=== PATIENT | female | born 1960 | race Caucasian/White ===

== ENCOUNTER → 2016-08-17 | Outpatient (CLI) | payer OTHER ==
[~2016-08-17] VITALS: Ht 162.6 cm; Wt 62.1 kg
[~2016-08-17] MED LIST: AMITRIPTYLINE H25 M2 PO; AMRIX15 MG PO; AMRIX30 MG PO; AZMACORT20 G1 IH; BACLOFEN 10MG T10 MG PO; CYMBALTA30 MG PO; DIAZEPAM 5 MG5 M1 OR; FLECTOR PATCH1 EA TP; FLEXERIL PO; FOLIC ACID1 MG PO; HYDROCHLOROTHIA25 M2 PO; HYDROCODON-ACE1 EAC5 PO; HYDROXYCHLOROQ200 M1 PO; IMITREX; IMITREX 50 MG PO; IMITREX 50 MG T50 M1 PO; IMITREX PO; LEVOTHROID137 MCG PO; LEVOTHROID150 MC1 PO; LEVOTHYROXIN0.137 M1 PO; LEVOXYL175 MCG PO; LIPITOR10 MG PO; LISINOPRIL20 MG PO; LYRICA 50 MG50 MG PO; LYRICA 75 MG CA75 MG PO; MEDROLDOSEPACK PO; METHOTREXATE 22.5 MG PO; METHYLIN5 M1 PO; METHYLIN5 MG PO; MOBIC15 MG PO; MS CONTIN15 MG PO; NABUMETONE 500500 M1 PO; NORCO 10-325 T1 EACH PO; OXYCONTIN CR 1010 M1 PO; OXYCONTIN10 M1 PO; OXYCONTIN15 MG PO; PAXIL40 MG PO; PERCOCET 7.5-31 EAC1 PO; PERCOCET 7.5-31 EACH PO; POTASSIUM20 PO; PREDNISONE 10 M10 MG PO; PREDNISONE 5 MG5 M1 PO; PROAIR HFA8.5 GM IH; PROTONIX 20 MG20 M1 PO; PROTONIX PO; PROTONIX40 M2; RELAFEN500 MG PO; RELPAX40 MG PO; REQUIP0.5 MG PO; TIZANIDINE HCL 22 M1 PO; TOPAMAX50 MG PO; VALIUM5 MG PO; ZYRTEC 10 MG TA10 MG PO; ZYRTEC-D TABLE1 EAC1 PO
--- NOTE | ~2016-08-17 | HPC ---
[facility] [address] [place] [address] PAIN MANAGEMENT CONSULTATION Name: AAKASHGISELLA Beto Room #: REG BETH Watts#: [id number] Admission: 08/17/16 Attend Phys: Adan Youngblood DO Discharge: Date of : 62 Report #: [id number] THIS REPORT FOR: //name// CC: DEDE Youngblood SUBJECTIVE: The patient is a 56-year-old female typically treated for lumbar radiculopathy status post decompressive laminectomy, restless legs syndrome, and myofascial pain, requiring complex medication management. Last seen in the pain clinic on 05/24/2016. Continued on MS Contin 15 mg q.8 hours, Percocet 7.5/325 up to 4 a day, and baclofen 10 mg up to 5 a day, 1 in the morning, 1 at noon, 1 at dinner and 2 at bedtime. Last urine drug screen 04/27/2016, was positive for prescribed medications. (In January, she had a single urine positive for THC. The patient related this to using "essential oils"). Nonetheless, she is THC free and has continued to be. She returns to pain clinic today. She is complaining of some ongoing blepharospasm and photophobia. She notes she did use Botox injections in the past for blepharospasm, but cost was prohibitive, and she discontinued. Overall, notes pain is 3.5 on a 0-10 visual analog scale, primarily neck, shoulders and low back. Pain is exacerbated with activity, turning her head in stress. Medications along with heat and ice seem to help. We reviewed the fact that opiate medications are being used to provide analgesia adequate to support activities of daily living, not attempting to achieve a specific pain score on the 0-10 Visual Analog Scale. The current opiate medications are providing sufficient analgesia to allow the patient to participate in activities of daily living. The patient is not exhibiting any aberrant behavior suggestive of drug diversion. The patient is not having any adverse reactions to medications. The patient is not suffering from daytime somnolence or mental acuity changes. The patient is managing opiate-induced constipation with appropriate fize-vdn-splawby agents and dietary considerations. The patient was counseled on concern for caution with operating a motor vehicle while using opiate medications. A physical exam was performed and the patient's functional status was evaluated. All patients with back pain were advised against the bed rest greater than 4 days and were advised to return to normal activities. Pain score assessment was noted and the treatment plan was reviewed with the patient. All current medications, both prescribed and OTC were reviewed and reconciled on the electronic medical record. Tobacco screening was accomplished and smoking cessation was advised when indicated. BMI was noted and diet/exercise modification was recommended for all patients following outside normal parameters. I reviewed with the patient today their responsibilities to safeguard prescription medications, reviewed their responsibility to utilize medications [address] [address] PAIN MANAGEMENT CONSULTATION Name: GISELLA FINN Room #: REG BETH Watts#: [id number] Admission: 08/17/16 Attend Phys: Adan Youngblood DO Discharge: Date of : 62 Report #: [id number] only as prescribed by the physician. They are to seek and receive pain medications only from 1 physician group ([facility]). They are to use 1 pharmacy and keep the clinic informed if they change pharmacies. Their responsibilities include making followup visits in a timely fashion and to avoid abrupt discontinuation of medication usage. Their responsibilities further include bringing their medications (bottles from the pharmacy with residual pills) to the visit for possible confirmation of pill counts and the patient understands it is their responsibility to submit to random drug screens to ensure both that the medications prescribed are present, and that no other controlled substances are present. All prescriptions provided today were generated electronically. PHYSICAL EXAMINATION: VITAL SIGNS: A 56-year-old female, BMI is 23.5 kilograms per meter squared. Vital signs stable as noted on the EMR. HEENT: She does have blepharospasm and some photophobia. NECK: Cervical range of motion is limited. Diffuse tenderness in the upper back. No discrete trigger points are noted. NEUROLOGIC: Gait is tandem. IMPRESSION: Lumbar radiculopathy status post decompressive laminectomy, myofascial pain, restless legs syndrome, and chronic headaches, requiring complex medication management. RECOMMENDATIONS: Renew current medication unchanged, MS Contin 15 mg q.8 hours, Percocet 7.5/325 up to 4 a day. I have taken the liberty of writing for 3 months of current medication. Follow up at that time, earlier if needed. By: [id number] Adan Youngblood DO /nt
[2016-08-17 10:41] VITALS: BP 131/73
== END ==
LOC: PAIN 07:13
DX: M54.16 Radiculopathy, lumbar region (principal); M79.1 Myalgia; G25.81 Restless legs syndrome; R51 Headache; M96.1 Postlaminectomy syndrome, not elsewhere classified; Z87.891 Personal history of nicotine dependence

== ENCOUNTER → 2016-11-22 | Outpatient (CLI) | payer OTHER ==
[~2016-11-22] VITALS: Ht 162.6 cm; Wt 62.7 kg
[~2016-11-22] MED LIST changes: +MELATONIN1 MG PO
--- NOTE | ~2016-11-22 | HPC ---
[facility] [place] [address] [place] [address] PAIN MANAGEMENT CONSULTATION Name: GISELLA FINN Room #: REG BETH Abrams.#: [id number] Admission: 11/22/16 Attend Phys: Adan Youngblood DO Discharge: Date of : 62 Report #: [id number] THIS REPORT FOR: //name// CC: DEDE Youngblood DATE OF SERVICE: 11/22/2016 The patient is a very pleasant 56-year-old female well known to pain clinic, typically treated for chronic headaches, lumbar radiculopathy status post decompressive laminectomy, restless legs syndrome requiring complex medication management. Last urine drug screen 04/27/2016 was positive for prescribed medications. Returns to pain clinic today. She has ongoing headaches, which remain problematic. She has a little photophobia. She notes pain is in the neck, shoulders today, rates it a 4 on VAS and exacerbated with turning her to stress. She notes current medications provide sufficient analgesia to participate in activities of daily living. PHYSICAL EXAMINATION: Shows a 56-year-old female. BMI is 23.7 kilograms per meter squared. Vital signs are generally stable as noted in the EMR. Does not use tobacco products. Cervical range of motion is modestly limited. Tenderness is noted in the splenius capitis, trapezius. No discrete trigger points noted. Again, some chronic headaches. She states that she literally has 3 or 4 headache-free days a month. This has been going on for years. She has failed multiple classes of agents for migraines, she has been on Inderal in the past and has lost efficacy. She has tried Imitrex with nominal efficacy and has been on Topamax in the past, all agents have not afforded good control of her chronic daily migraine headaches. I think she would be an excellent candidate for Botox injections and we talked about this today. We reviewed the fact that opiate medications are being used to provide analgesia adequate to support activities of daily living, not attempting to achieve a specific pain score on the 0-10 Visual Analog Scale. The current opiate medications are providing sufficient analgesia to allow the patient to participate in activities of daily living. The patient is not exhibiting any aberrant behavior suggestive of drug diversion. The patient is not having any adverse reactions to medications. The patient is not suffering from daytime somnolence or mental acuity changes. The patient is managing opiate-induced constipation with appropriate lzzo-hfp-miugfjm agents and dietary considerations. The patient was counseled on concern for caution with operating a motor vehicle while using opiate medications. A physical exam was performed and the patient's functional status was evaluated. All patients with back pain were advised against the bed rest greater than [address] [address] PAIN MANAGEMENT CONSULTATION Name: GISELLA FINN Room #: REG BETH Watts#: [id number] Admission: 11/22/16 Attend Phys: Adan Youngblood DO Discharge: Date of : 62 Report #: [id number] days and were advised to return to normal activities. Pain score assessment was noted and the treatment plan was reviewed with the patient. All current medications, both prescribed and OTC were reviewed and reconciled on the electronic medical record. Tobacco screening was accomplished and smoking cessation was advised when indicated. BMI was noted and diet/exercise modification was recommended for all patients following outside normal parameters. I reviewed with the patient today their responsibilities to safeguard prescription medications, reviewed their responsibility to utilize medications only as prescribed by the physician. They are to seek and receive pain medications only from 1 physician group ( [facility]). They are to use 1 pharmacy and keep the clinic informed if they change pharmacies. Their responsibilities include making followup visits in a timely fashion and to avoid abrupt discontinuation of medication usage. Their responsibilities further include bringing their medications (bottles from the pharmacy with residual pills) to the visit for possible confirmation of pill counts and the patient understands it is their responsibility to submit to random drug screens to ensure both that the medications prescribed are present, and that no other controlled substances are present. All prescriptions provided today were generated electronically. ASSESSMENT: Chronic headaches, chronic pain syndrome, lumbar radiculopathy status post decompressive laminectomy and restless legs syndrome and the patient is stable on baseline medications. RECOMMENDATION: Continue MS Contin 15 mg q. 8 hours, baclofen 10 mg q. 8 hours for spasm, Percocet 7.5/325 one tablet 2-3 times a day, limit #75 tablets for 30 days. I have taken the liberty writing for 3 months of current medication. Follow up at that time, we will reach out to the patient about Botox injections in the near future. By: [id number] Adan Youngblood DO /nt
[2016-11-22 11:15] VITALS: BP 130/90
== END | disposition home or self-care (01) ==
LOC: PAIN 07:29
DX: M54.16 Radiculopathy, lumbar region (principal); Z98.890 Other specified postprocedural states; Z79.899 Other long term (current) drug therapy; G89.4 Chronic pain syndrome; G25.81 Restless legs syndrome; Z87.891 Personal history of nicotine dependence

== ENCOUNTER → 2017-02-21 | Outpatient (CLI) | payer OTHER ==
[~2017-02-21] VITALS: Ht 162.6 cm; Wt 63.1 kg
--- NOTE | ~2017-02-21 | HPC ---
[facility] [place] [address] PAIN MANAGEMENT CONSULTATION Name: GISELLA FINN Room #: REG BETH Watts#: [id number] Admission: 02/21/17 Attend Phys: Adan Youngblood DO Discharge: Date of : 62 Report #: [id number] THIS REPORT FOR: //name// CC: DEDE Youngblood The patient is a 56-year-old female, was typically treated for lumbar radiculopathy, status post cervical decompressive laminectomy, chronic headaches, restless leg syndrome, requiring high risk complex medication management. Last seen in the pain clinic 11/22/2016, continued on MS Contin 15 mg q.8 hours, Percocet 7.5/325 one tablet 2-3 times a day. Representing about 70 mEq of morphine a day. She had been stable on this medication for some time. We had talked about Botox injections for chronic headaches at the last visit. Given that I am having trouble getting this authorized, I have given her contact information for Dr. Keon Dukes, for consideration for Botox injections. Last urine drug screen 04/27/2016, was positive for prescribed medication. The patient returns to pain clinic today. She notes while medications generally providing sufficient analgesia to participate in the activities of daily living, she is having increasing pain in the neck, shoulders, and arms. Physical exam does show significant trigger points and muscle spasm in the right splenius capitis, bilateral trapezius and bilateral upper thoracic paravertebral muscles. PHYSICAL EXAMINATION: Otherwise is generally unchanged, a little photophobia in a 56-year-old female, BMI is 23.9 kg/m2. Cervical range of motion is limited, fairly significant cosmetic defect in the mid upper back, lower neck compatible with decompressive laminectomies C6-C7. Blood pressure 138/76, pulse 85, respirations 16. Cervical range of motion is modestly limited in all planes. Again, trigger points as noted above. Upper extremity strength is symmetric. We reviewed the fact that opiate medications are being used to provide analgesia adequate to support activities of daily living, not attempting to achieve a specific pain score on the 0-10 Visual Analog Scale. The current opiate medications are providing sufficient analgesia to allow the patient to participate in activities of daily living. The patient is not exhibiting any aberrant behavior suggestive of drug diversion. The patient is not having any adverse reactions to medications. The patient is not suffering from daytime somnolence or mental acuity changes. The patient is managing opiate-induced constipation with appropriate klil-hra-fowwmoa agents and dietary considerations. The patient was counseled on concern for caution with operating a motor vehicle while using opiate medications. A physical exam was performed and the patient's functional status was evaluated. All patients with back pain were advised against the bed rest greater than [address] [place] [address] PAIN MANAGEMENT CONSULTATION Name: GISELLA FINN Room #: REG CLKemar Watts#: [id number] Admission: 02/21/17 Attend Phys: Adan Youngblood DO Discharge: Date of : 62 Report #: [id number] days and were advised to return to normal activities. Pain score assessment was noted and the treatment plan was reviewed with the patient. All current medications, both prescribed and OTC were reviewed and reconciled on the electronic medical record. Tobacco screening was accomplished and smoking cessation was advised when indicated. BMI was noted and diet/exercise modification was recommended for all patients following outside normal parameters. I reviewed with the patient today their responsibilities to safeguard prescription medications, reviewed their responsibility to utilize medications only as prescribed by the physician. They are to seek and receive pain medications only from 1 physician group ( [facility]). They are to use 1 pharmacy and keep the clinic informed if they change pharmacies. Their responsibilities include making followup visits in a timely fashion and to avoid abrupt discontinuation of medication usage. Their responsibilities further include bringing their medications (bottles from the pharmacy with residual pills) to the visit for possible confirmation of pill counts and the patient understands it is their responsibility to submit to random drug screens to ensure both that the medications prescribed are present, and that no other controlled substances are present. All prescriptions provided today were generated electronically. ASSESSMENT: 1. Chronic headaches, restless leg syndrome, status post cervical decompressive laminectomy, requiring high risk complex medication management. Recommendation: Continue current medication unchanged, MS Contin 15 mg q.8 hours, baclofen 10 mg q.8 hours, Percocet 7.5/325 one tablet 2-3 times a day, limit 75 tablets for 30 days. 2. Acute exacerbation of myofascial pain. Recommendation: Trigger point injections times 5 today. PROCEDURE NOTE: After written informed consent was obtained, the patient was placed in prone position. Trigger points were identified in the right splenius capitis, left and right trapezius and left and right upper thoracic paravertebral muscles were identified, cleansed with alcohol. Using a 25-gauge needle, 40 mg triamcinolone plus 8 mL of 0.5 of preservative-free bupivacaine was injected into and around the trigger points. Needle was removed, the area was cleansed, and Band-Aids applied. The patient was monitored for an appropriate period of time, discharged in good and stable condition. <ELECTRONICALLY SIGNED> By: Adan Youngblood DO 02/25/17 0759 [id number] Adan Youngblood DO /elsa
[2017-02-21 09:07] VITALS: BP 138/76
== END | disposition home or self-care (01) ==
LOC: PAIN 06:34
DX: M79.1 Myalgia (principal); G44.89 Other headache syndrome; Z98.890 Other specified postprocedural states; Z79.891 Long term (current) use of opiate analgesic; Z87.891 Personal history of nicotine dependence; Z88.0 Allergy status to penicillin; Z79.899 Other long term (current) drug therapy

== ENCOUNTER → 2017-05-23 | Outpatient (CLI) | payer OTHER ==
[~2017-05-23] VITALS: Ht 162.6 cm; Wt 65.3 kg
[~2017-05-23] MED LIST changes: +IMITREX 50 MG T50 MG PO; +IPRATROPIUM BRO30 ML NASAL; +LOPRESSOR50 PO; +NORTRIPTYLINE H10 M1 PO; +PERCOCET PO; +TRAMADOL 50 MG50 MG PO; +TRAZODONE HCL50 MG PO; +[UNRECOGNIZED DRUG - OTHER] PO
--- NOTE | ~2017-05-23 | HPC ---
[facility] [address] [place] [address] PAIN MANAGEMENT CONSULTATION Name: GISELLA FINN Room #: [facility] [id number] Admission: 05/23/17 Attend Phys: Adan Younbglood DO Discharge: Date of : 62 Report #: [id number] THIS REPORT FOR: //name// CC: DEDE [facility] physician/PCP Adan Youngblood DATE OF SERVICE: 05/23/2017 The patient is a 56-year-old female, long known to the Pain Clinic, being treated for cervical radiculopathy, status post decompressive laminectomy, chronic headaches, restless legs syndrome, myofascial pain requiring complex medication management. Last visit on 02/21/2017, we continued patient on baseline medication including MS Contin 15 mg q. 8 hours and Percocet 7.5/325 one tablet 2-3 times a day, limit 75 tablets for 30 days. The patient was given trigger point injections at that time with overall efficacy. Last random drug screen on 04/27/2016 was positive for prescribed medications. She returns to Pain Clinic today noting medications generally providing sufficient analgesia to participate in activities of daily living, rates the pain a 2 on a VAS at present. Notes stress, turning her head, and activity seems to exacerbate her chronic headaches. Otherwise, the patient notes subjective pain score again 2 with current medications. History of osteoarthritis is affecting bilateral upper and lower extremities. BMI 24.7 kg/m2. Blood pressure is modestly elevated 149/86, pulse 87, respirations of 14. She had a single fall within the last 3 months. She notes she did not get hurt. She simply tripped the leg, did not "give out." History of hypertension. Medication list was reconciled. We reviewed our opiate consent to treat contract and was signed again today. Functional assessment score is 40/70. PHYSICAL EXAMINATION: Otherwise, unchanged, still has little photophobia. Cervical range of motion is limited. We reviewed the fact that opiate medications are being used to provide analgesia adequate to support activities of daily living, not attempting to achieve a specific pain score on the 0-10 Visual Analog Scale. The current opiate medications are providing sufficient analgesia to allow the patient to participate in activities of daily living. The patient is not exhibiting any aberrant behavior suggestive of drug diversion. The patient is not having any adverse reactions to medications. The patient is not suffering from daytime somnolence or mental acuity changes. The patient is managing opiate-induced constipation with appropriate hygv-tja-drogqxj agents and dietary considerations. The patient was counseled on concern for caution with operating [address] [address] PAIN MANAGEMENT CONSULTATION Name: GISELLA FINN Room #: REG [facility]#: [id number] Admission: 05/23/17 Attend Phys: Adan Youngblood DO Discharge: Date of : 62 Report #: [id number] a motor vehicle while using opiate medications. A physical exam was performed and the patient's functional status was evaluated. All patients with back pain were advised against the bed rest greater than 4 days and were advised to return to normal activities. Pain score assessment was noted and the treatment plan was reviewed with the patient. All current medications, both prescribed and OTC were reviewed and reconciled on the electronic medical record. Tobacco screening was accomplished and smoking cessation was advised when indicated. BMI was noted and diet/exercise modification was recommended for all patients following outside normal parameters. I reviewed with the patient today their responsibilities to safeguard prescription medications, reviewed their responsibility to utilize medications only as prescribed by the physician. They are to seek and receive pain medications only from 1 physician group ( [facility]). They are to use 1 pharmacy and keep the clinic informed if they change pharmacies. Their responsibilities include making followup visits in a timely fashion and to avoid abrupt discontinuation of medication usage. Their responsibilities further include bringing their medications (bottles from the pharmacy with residual pills) to the visit for possible confirmation of pill counts and the patient understands it is their responsibility to submit to random drug screens to ensure both that the medications prescribed are present, and that no other controlled substances are present. All prescriptions provided today were generated electronically. ASSESSMENT: Chronic headaches; cervical radiculopathy, status post decompressive laminectomy; restless legs syndrome; myofascial pain component, requiring complex medication management. RECOMMENDATIONS: Continue current medication unchanged. I have taken the liberty of writing for 2 months of current medication including baclofen 10 mg 1- to 1-1/2 tablets 3 times a day; Imitrex as needed for headaches, 50 mg tablet, dispensed 12, july take 1 tablet at onset headache, repeat in 2 hours max of two tabs in 24 hours. Continue opiate analgesic including MS Contin 15 mg q. 8 hours and Percocet 7.5/325 one tablet 2-3 times a day, limit 75 tablets for 30 days. Discharged in good and stable condition. Follow up 2 months for reevaluation. <ELECTRONICALLY SIGNED> By: Adan Youngblood DO 05/24/17 0727 [id number] Adan Youngblood DO /nt
[2017-05-23 13:48] VITALS: BP 149/86
== END ==
LOC: PAIN 07:35
DX: G89.29 Other chronic pain (principal); R51 Headache; M54.12 Radiculopathy, cervical region; M96.1 Postlaminectomy syndrome, not elsewhere classified; G25.81 Restless legs syndrome; M79.1 Myalgia; Z79.899 Other long term (current) drug therapy

== ENCOUNTER → 2017-08-16 | Outpatient (CLI) | payer OTHER ==
[~2017-08-16] VITALS: Ht 162.6 cm; Wt 68.2 kg
[~2017-08-16] MED LIST changes: -IMITREX 50 MG T50 MG PO; -IPRATROPIUM BRO30 ML NASAL; -TRAMADOL 50 MG50 MG PO; -TRAZODONE HCL50 MG PO
--- NOTE | ~2017-08-16 | HPC ---
[facility] [address] [address] PAIN MANAGEMENT CONSULTATION Name: AAKASHGISELLA Beto Room #: REG B[facility] Watts#: [id number] Admission: 08/16/17 Attend Phys: Adan Youngblood DO Discharge: Date of : 62 Report #: [id number] THIS REPORT FOR: //name// CC: [facility] physician/PCP Adan Youngblood DATE OF SERVICE: 08/16/2017 The patient is a 57-year-old female, long known to the pain clinic. I actually took over her care in 2008. She has had 2 cervical surgeries with ongoing headaches, component of restless legs syndrome, myofascial pain. She requires complex medication management. Last visit was on 05/23/2017. Prior random drug screen on 04/27/2016 was positive for prescribed medications. Today, she returns to pain clinic. We had a prolonged visit from [id number]. Greater than 50% of the 25 minute plus visit was spent counseling the patient. She states trigger point injection 6 months ago did afford good relief of the right neck spasm. She had her initial neck surgery in [place] in 2004 and subsequently had instrumentation fusion C3 through T1 in 2006. Initial surgery was for myelopathy. She still has some ongoing lower extremity weakness. Her chronic headaches occurred nearly daily. She does have some chronic photophobia. She sees Dr. Radha Lyn, expansion joint finisher for lupus and has been on prednisone for same. I believe her expansion joint finisher is in [place], [place]. She returns to pain clinic today noting her pain as a 6-7 on a VAS, exacerbated with activity, turning her head and stress. Pain is primarily in neck and shoulders, right greater than left. PHYSICAL EXAMINATION: Shows a 57-year-old female, BMI is 25.8 kilograms per meter squared. Blood pressure is elevated today at 157/104. She states she did not take her antihypertensives (Zestril and hydrochlorothiazide). Pulse 84, respirations 16. Cervical range of motion is actually remarkably full given her fusion, though she does have significant tenderness in the right splenius capitis, trapezius. Upper extremity strength is generally preserved. Photophobia. No cervical adenopathy. I had a long discussion with the patient today about therapeutic options. It appears that she really has not been on any migraine prophylactic medications. Today, I elected to start nortriptyline 10 mg at bedtime. I did write for #30 tablets with 2 refills. If, however, she does not notice change in her symptoms, I did write for a second migraine prophylactic agent to be released in 4 weeks, metoprolol 50 mg at bedtime, #30 tablets with 2 refills. If she fails both of these agents, I will ask her general forecaster physician to refer her for consideration for Botox injections. [address] [address] PAIN MANAGEMENT CONSULTATION Name: GISELLA FINN Room #: REG B[facility] Watts#: [id number] Admission: 08/16/17 Attend Phys: Adan Youngblood DO Discharge: Date of : 62 Report #: [id number] ASSESSMENT: Symptomatic cervical radiculopathy, status post cervical decompressive laminectomy and fusion, chronic headaches, restless legs syndrome, myofascial pain requiring complex medication management. We reviewed the fact that opiate medications are being used to provide analgesia adequate to support activities of daily living, not attempting to achieve a specific pain score on the 0-10 Visual Analog Scale. The current opiate medications are providing sufficient analgesia to allow the patient to participate in activities of daily living. The patient is not exhibiting any aberrant behavior suggestive of drug diversion. The patient is not having any adverse reactions to medications. The patient is not suffering from daytime somnolence or mental acuity changes. The patient is managing opiate-induced constipation with appropriate nmaj-dej-zrrtvuj agents and dietary considerations. The patient was counseled on concern for caution with operating a motor vehicle while using opiate medications. A physical exam was performed and the patient's functional status was evaluated. All patients with back pain were advised against the bed rest greater than 4 days and were advised to return to normal activities. Pain score assessment was noted and the treatment plan was reviewed with the patient. All current medications, both prescribed and OTC were reviewed and reconciled on the electronic medical record. Tobacco screening was accomplished and smoking cessation was advised when indicated. BMI was noted and diet/exercise modification was recommended for all patients following outside normal parameters. I reviewed with the patient today their responsibilities to safeguard prescription medications, reviewed their responsibility to utilize medications only as prescribed by the physician. They are to seek and receive pain medications only from 1 physician group ( [facility]). They are to use 1 pharmacy and keep the clinic informed if they change pharmacies. Their responsibilities include making followup visits in a timely fashion and to avoid abrupt discontinuation of medication usage. Their responsibilities further include bringing their medications (bottles from the pharmacy with residual pills) to the visit for possible confirmation of pill counts and the patient understands it is their responsibility to submit to random drug screens to ensure both that the medications prescribed are present, and that no other controlled substances are present. All prescriptions provided today were generated electronically. RECOMMENDATIONS: Continue MS Contin 15 mg q. 8 hours. She has been taking Percocet 7.5/325 two to three tablets a day, limit #75 tablets for 30 days. This equates to an average of about 75 mg morphine equivalent daily. I reviewed with her the CDC risk parameters and we stressed trying to wean opiates. We will decrease her Percocet from 7.5/325 to 5/325, limit to 2-3 tablets a day, #75 tablets for 30 days. She decreased her overall daily morphine to about 65 mEq. We will continue Imitrex for migraine treatment and continue baclofen 10 mg 1-1/2 tablets 3 times a day for spasm. [facility] [address] [place] [address] PAIN MANAGEMENT CONSULTATION Name: GISELLA FINN Room #: REG [facility]#: [id number] Admission: 08/16/17 Attend Phys: Adan Youngblood DO Discharge: Date of : 62 Report #: [id number] The patient was discharged in good and stable condition today. I told her I am leaving the practice and she will need to follow up with another pain clinic physician. She [place] ways away, but has had trouble finding pain physicians, we are actually the closest to her home (she lives in [place], [place]). We will have the patient follow up with one of the Pain physicians if she cannot find another treating physician. She has been remarkably stable on current medications. She has had no problems with daytime somnolence, mental acuity changes, or constipation. She has exhibited no aberrant behavior such as drug diversion. PROCEDURE: Trigger point injection x 2. DESCRIPTION OF PROCEDURE: After written informed consent was obtained, the patient was placed in seated position. Trigger points were identified in the right splenius capitis and trapezius were identified. Area was cleansed with alcohol using 27-gauge needle, 30 mg triamcinolone plus 6 mL of 0.5% preservative-free bupivacaine was injected into and around the 2 discrete triggers. All needles removed. The patient was cleansed. Band-Aid was applied. The patient was told to use ice the area today. <ELECTRONICALLY SIGNED> By: Adan Youngblood DO 08/21/17 0725 [id number] [id number] Adan Youngblood DO /nt
[2017-08-16 12:32] VITALS: BP 157/104
== END | disposition home or self-care (01) ==
LOC: PAIN 08:13
DX: M79.1 Myalgia (principal); G89.29 Other chronic pain; M54.12 Radiculopathy, cervical region; R51 Headache; G25.81 Restless legs syndrome; Z98.890 Other specified postprocedural states; Z79.891 Long term (current) use of opiate analgesic; Z87.891 Personal history of nicotine dependence; Z88.0 Allergy status to penicillin; Z79.899 Other long term (current) drug therapy

== ENCOUNTER → 2018-01-22 | Outpatient (CLI) | payer OTHER ==
[~2018-01-22] VITALS: Ht 170.2 cm; Wt 71.8 kg
[~2018-01-22] MED LIST changes: +IMITREX 50 MG T50 MG PO; +IPRATROPIUM BRO30 ML NASAL; +TRAMADOL 50 MG50 MG PO; +TRAZODONE HCL50 MG PO
--- NOTE | ~2018-01-22 | HPC ---
[facility] [address] [place] [address] PAIN MANAGEMENT CONSULTATION Name: GISELLA FINN Room #: REG [facility].#: [id number] Admission: 01/22/18 Attend Phys: Emile Youngblood DO Discharge: Date of : 62 Report #: [id number] THIS REPORT FOR: //name// CC: Cornelia Edwards MD [facility] physician/PCP Emile Youngblood DATE OF SERVICE: 01/22/2018 CHIEF COMPLAINT: Cervical radicular symptoms, myofascial pain, generalized pain secondary to lupus. HISTORY OF PRESENT ILLNESS: As you know, the patient is a 57-year-old female who returns today in followup visit for medication management. She is reporting increasing neck pain for which she is able to provide 6 different discrete trigger points that are causing her symptoms today. Overall, the patient states she is doing well with medication management. She has returned today requesting medications with the possibility of a return visit in the next couple of weeks if necessary to address her recurrent trigger point pain generators in the cervical region. The patient places pain score today around 3-4/10. States activities, stress exacerbates symptoms; medications, heat, cold compresses, repositioning and trigger points tend to improve pain. She returns today for medication management. ALLERGIES: No known drug allergies. CURRENT MEDICATIONS: Metoprolol 50 mg once a day, sumatriptan 50 mg p.r.n., oxycodone 5 mg q.8h. p.r.n. for pain, MS Contin 15 mg 3 times a day, baclofen 10 mg 3 times a day p.r.n., prednisone 5 mg per day, melatonin 1 mg 3 times a day, potassium chloride 20 mEq p.o. q. day, folic acid 1 mg per day, levothyroxine 137 mcg per day, hydrochlorothiazide 25 mg per day, Paxil 40 mg per day, Requip 0.5 mg once a day, Lipitor 10 mg once a day, Zestril 20 mg once a day, Protonix 20 mg once a day, Zyrtec 10 mg once a day, Valium 5 mg p.r.n., albuterol 2 puffs q.4h. p.r.n., trazodone 100 mg p.o. at bedtime. SOCIAL HISTORY: The patient denies tobacco, alcohol, IV or illicit drug use. She is unaccompanied today. IMAGING: No new imaging available. PQRS: The patient has known osteoarthritis of the left lower extremity, left upper extremity, right lower extremity and right upper extremity involving bilateral hips, knees, ankles and shoulders. She does not have a history of rheumatoid arthritis. Pain intensity today is equal to 3-4/10, not a fall risk, has not had a fall in the last 3 months. She is not on blood thinners. She is treated for hypertension. She is on opioids and has been for greater than [address] [address] PAIN MANAGEMENT CONSULTATION Name: GISELLA FINN Room #: REG [facility] Stefanie#: [id number] Admission: 01/22/18 Attend Phys: Emile Youngblood DO Discharge: Date of : 62 Report #: [id number] weeks. She has a low addiction potential. Functional impact 40/70 indicating rrzh-gr-falssoil interference of daily activities secondary to pain. PHYSICAL EXAMINATION: VITAL SIGNS: Blood pressure 129/71, pulse 70, respiratory rate 16 and unlabored, the patient is 97% on room air. Height 5 feet 7 inches tall, weight 158.4 pounds, BMI calculated 24.8. GENERAL: Well-developed, well-nourished, well-hydrated 57-year-old female appearing stated age, placing current pain score 3-4/10. HEENT: Normocephalic, atraumatic. Pupils equal, round, reactive to light. Extraocular muscles are intact. EXTREMITIES: Show no clubbing, no cyanosis, no edema. MUSCULOSKELETAL: Upper extremity strength appears symmetrical 5/5, intact to light touch from C5-T1 dermatomes. Cervical provocation testing is met with increasing pain, mild restriction of motion. No significant spinous process tenderness. There are 6 discrete tender points in the paraspinal muscles of the cervical region. ASSESSMENT: 1. Cervical radiculopathy. 2. Post-laminectomy syndrome and fusion syndrome of the cervical spine. 3. Chronic headaches. 4. Myofascial pain. 5. Lupus. 6. Complex medication management. 7. Chronic intractable pain. PLAN: 1. The patient returns today in followup visit for medication management. She still states that the medications are working beneficially for pain control. She does report that she has been recently started on trazodone to help with some depression issues. I did advise the patient this can lead to excessive sleepiness. She should be taking this only at night. The patient has been advised this by her PCP who initiated the therapy. She is to watch for any potential synergistic effects with the opioids she is providing causing excessive somnolence. 2. The patient was provided prescription of MS Contin 15 mg dose 1 tab p.o. b.i.d., #90, releases of today and 4 weeks from today, 2 months' worth of medication. 3. The patient was provided prescription of Percocet 5/325 one tab every 8 hours p.r.n. for pain, #75, releases of today and 4 weeks from today, 2 months' worth of medication. 4. We reviewed the fact that opiate medications are being used to provide analgesia adequate to support activities of daily living, not attempting to achieve a specific pain score on the 0-10 Visual Analog Scale. The current opiate medications are providing sufficient analgesia to allow the patient to [facility] [address] [place] [address] PAIN MANAGEMENT CONSULTATION Name: AAKASHGISELLA G [facility] [id number] Admission: 01/22/18 Attend Phys: Emile Youngblood DO Discharge: Date of : 62 Report #: [id number] participate in activities of daily living. The patient is not exhibiting any aberrant behavior suggestive of drug diversion. The patient is not having any adverse reactions to medications. The patient is not suffering from daytime somnolence or mental acuity changes. The patient is managing opiate-induced constipation with appropriate ewyk-dny-henbdfn agents and dietary considerations. The patient was counseled on concern for caution with operating a motor vehicle while using opiate medications. A physical exam was performed and the patient's functional status was evaluated. All patients with back pain were advised against the bed rest greater than 4 days and were advised to return to normal activities. Pain score assessment was noted and the treatment plan was reviewed with the patient. All current medications, both prescribed and OTC were reviewed and reconciled on the electronic medical record. Tobacco screening was accomplished and smoking cessation was advised when indicated. BMI was noted and diet/exercise modification was recommended for all patients following outside normal parameters. I reviewed with the patient today their responsibilities to safeguard prescription medications, reviewed their responsibility to utilize medications only as prescribed by the physician. They are to seek and receive pain medications only from 1 physician group ( [facility]). They are to use 1 pharmacy and keep the clinic informed if they change pharmacies. Their responsibilities include making followup visits in a timely fashion and to avoid abrupt discontinuation of medication usage. Their responsibilities further include bringing their medications (bottles from the pharmacy with residual pills) to the visit for possible confirmation of pill counts and the patient understands it is their responsibility to submit to random drug screens to ensure both that the medications prescribed are present, and that no other controlled substances are present. All prescriptions provided today were generated electronically. 5. The patient was provided a prescription of baclofen 10 mg dose 1 tab p.o. t.i.d. p.r.n. muscle spasms. I have given the patient 150 tablets, so she can take up to 1-2 tablets as necessary. She was given refills for 3 months' worth of medication. 6. We will see the patient back in followup visit on an as needed basis if she wishes to undergo trigger point injections of the cervical region. Otherwise, we will see her back in followup visit in 2 months for medication management. <ELECTRONICALLY SIGNED> By: Emile Youngblood DO 01/22/18 1704 [id number] Eimle Youngblood DO /nt
[2018-01-22 09:15] VITALS: BP 129/71
== END ==
LOC: PAIN 06:43
DX: M54.12 Radiculopathy, cervical region (principal); M79.18 Myalgia, other site; G44.221 Chronic tension-type headache, intractable; G89.4 Chronic pain syndrome; M32.9 Systemic lupus erythematosus, unspecified; M96.1 Postlaminectomy syndrome, not elsewhere classified; M43.22 Fusion of spine, cervical region; Z79.899 Other long term (current) drug therapy

== ENCOUNTER → 2018-04-08 | Outpatient (CLI) | payer OTHER ==
[~2018-04-08] VITALS: Ht 154.9 cm; Wt 68.8 kg
--- NOTE | ~2018-04-08 | HPC ---
[facility] [address] [place] [address] PAIN MANAGEMENT CONSULTATION Name: GISELLA FINN [id number] Admission: 04/08/18 Attend Phys: Emile Youngblood DO Discharge: Date of : 62 Report #: [id number] THIS REPORT FOR: //name// CC: Cornelia Edwards MD [facility] physician/PCP Emile Youngblood DATE OF SERVICE: 04/08/2018 CHIEF COMPLAINT: Cervical radicular symptoms, myofascial pain, generalized pain disorder, secondary lupus. HISTORY OF PRESENT ILLNESS: As you know, the patient is a 57-year-old female returning in followup visit for medication management. She continues to experience pain for which she provides pain level of 2-3/10. States pain begins in the neck, radiates into the shoulders, bilateral. She also has low back, bilateral hip pain and left leg pain. She describes the pain as chronic, aching in sensation, exacerbated with activity and stress. Improves with medications, heat and cold compresses, repositioning and trigger point injections in the cervical region. She returns today in followup visit, requesting refill of medications, stating the medications provided 70% improvement in overall pain. She is denying any side effects with therapy, wishing to continue treatment as currently prescribed. ALLERGIES: No known drug allergies. CURRENT MEDICATIONS: Metoprolol 50 mg once a day, sumatriptan 50 mg p.r.n., oxycodone 5 mg q.8 hours p.r.n. pain, MS Contin 15 mg t.i.d., baclofen 10 mg 3 times a day p.r.n., prednisone 5 mg per day, melatonin 1 mg 3 times a day, potassium chloride 20 mEq p.o. daily, folic acid 1 mg per day, levothyroxine 137 mcg per day, hydrochlorothiazide 25 mg per day, Paxil 40 mg per day, Requip 0.5 mg once a day, Lipitor 10 mg once a day, Zestril 20 mg once a day, Protonix 20 mg per day, Zyrtec 10 mg per day, Valium 5 mg p.r.n., albuterol 2 puffs q.4 hours p.r.n., trazodone 100 mg once a day. SOCIAL HISTORY: The patient denies tobacco, alcohol, IV or illicit drug use. IMAGING: No new imaging is available. PQRS: The patient has known osteoarthritic changes of the left lower extremity, left upper extremity, right upper extremity and right lower extremity. She has bilateral hip, bilateral knee, ankle, and shoulder osteoarthritic changes. She is treated for only osteoarthritis. No rheumatoid arthritis. She is placing pain intensity of 2-3/10. She is not a fall risk, but has had a fall in the last 3 months, tripping over objects in her home. She is not on blood thinners. She is treated for hypertension. She has been on chronic opioids for an [address] [address] PAIN MANAGEMENT CONSULTATION Name: GISELLA FINN Beto Room #: REG [facility] Watts#: [id number] Admission: 04/08/18 Attend Phys: Emile Youngblood DO Discharge: Date of : 62 Report #: [id number] extended period of time. She has a low opioid addiction potential. She is placing pain impact score of 40/70, moderate to severe. PHYSICAL EXAMINATION: VITAL SIGNS: Blood pressure 111/60, pulse is 70, respiratory rate 16 and unlabored. The patient is 100% on room air. Height 5 feet 1 inch tall, weight 151.6 pounds, BMI calculated 28.7. GENERAL: Well-developed, well-nourished, well-hydrated 57-year-old female appearing stated age, placing current pain score 2-3/10. HEENT: Normocephalic, atraumatic. Pupils equal, round, reactive to light. EXTREMITIES: Show no clubbing, no cyanosis, no edema. MUSCULOSKELETAL: Upper extremity strength is symmetrical 5/5, muscle bulk and tone equal and symmetrical in comparing right upper extremity to left. Cervical provocation testing is met with increasing pain. Mild restriction of motion is noted again today. Spurling's test is negative. ASSESSMENT: 1. Cervical radiculopathy. 2. Post-laminectomy syndrome of the cervical spine, status post fusion. 3. Chronic headache. 4. Myofascial pain. 5. Systemic lupus erythematosus. 6. Complex medication management. 7. Chronic intractable pain. PLAN: 1. The patient returns today in followup visit for continuation of medication therapy. She feels medications are working beneficially for pain control. She is reporting upwards of 70% improvement in overall pain, denying any side effects with their use. She wishes to continue medication at this time. 2. We reviewed the fact that opiate medications are being used to provide analgesia adequate to support activities of daily living, not attempting to achieve a specific pain score on the 0-10 Visual Analog Scale. The current opiate medications are providing sufficient analgesia to allow the patient to participate in activities of daily living. The patient is not exhibiting any aberrant behavior suggestive of drug diversion. The patient is not having any adverse reactions to medications. The patient is not suffering from daytime somnolence or mental acuity changes. The patient is managing opiate-induced constipation with appropriate lglc-iho-jxalqeq agents and dietary considerations. The patient was counseled on concern for caution with operating a motor vehicle while using opiate medications. A physical exam was performed and the patient's functional status was evaluated. All patients with back pain were advised against the bed rest greater than 4 days and were advised to return to normal activities. Pain score assessment was noted and the treatment plan was reviewed with the patient. All current [facility] [address] [place] [address] PAIN MANAGEMENT CONSULTATION Name: AAKASHGISELLA Beto Room #: REG [facility] Stefanie#: [id number] Admission: 04/08/18 Attend Phys: Emile Youngblood DO Discharge: Date of : 62 Report #: [id number] medications, both prescribed and OTC were reviewed and reconciled on the electronic medical record. Tobacco screening was accomplished and smoking cessation was advised when indicated. BMI was noted and diet/exercise modification was recommended for all patients following outside normal parameters. I reviewed with the patient today their responsibilities to safeguard prescription medications, reviewed their responsibility to utilize medications only as prescribed by the physician. They are to seek and receive pain medications only from 1 physician group ([facility]). They are to use 1 pharmacy and keep the clinic informed if they change pharmacies. Their responsibilities include making followup visits in a timely fashion and to avoid abrupt discontinuation of medication usage. Their responsibilities further include bringing their medications (bottles from the pharmacy with residual pills) to the visit for possible confirmation of pill counts and the patient understands it is their responsibility to submit to random drug screens to ensure both that the medications prescribed are present, and that no other controlled substances are present. All prescriptions provided today were generated electronically. 3. The patient was provided prescription of MS Contin 15 mg dose 1 tab p.o. t.i.d. She was given #90 tablets, releases of today and 4 weeks from today, 2 months' worth of medication. 4. The patient was provided a prescription for Percocet 5/325, one tab p.o. q.8 hours p.r.n. for pain, #75 releases of today, 4 weeks from today, 2 months' worth of medication. 5. We will see the patient back in followup visit on an as-needed basis for possible trigger point injections. Otherwise, we will see her back in 2 months for medication management. By: [id number] Emile Youngblood DO /nt
[2018-04-08 09:48] VITALS: BP 111/60
--- NOTE | 2018-04-08 10:07 | NUR ---
Pain Clinic Assessment: 1. History of Osteoarthritis: Left Lower Extremity Left Upper Extremity Right Lower Extremity Right Upper Extremity History of Rheumatoid Arthritis: Not Applicable 2. Height: 5 ft. 1 in. 154.9 cm. Weight: 151.6 lb. oz. 68.765 kg. Patient's BMI: 28.7 3. Vital Signs: BP: 111/60 Pulse: 70 Resp: 16 Temp: 02 Sat: 100 ECG Mon: 4. Pain Intensity: 2-3 5. Fall Risk: Dizziness: N Needs help standing or walking: N Fallen in the last 3 months: Y Fall risk comments: 6. Patient on Blood Thinner: None 7. History of Hypertension: Y 8. Opioid Therapy greater than 6 weeks: Y Opiate Contract Signed: 05/23/17 9. Risk Assessment Tool Provided: 1/flex 10. Functional Assessment Tool: 11. Recreational Drug Use: Never Drug Type: Tobacco Use: Former Smoker Tobacco Type: Amount or Packs/day: How Many Years: Alcohol Use: No Frequency: Quant:
== END ==
LOC: PAIN 01-28 10:52
DX: M54.12 Radiculopathy, cervical region (principal); G89.4 Chronic pain syndrome; R51 Headache; M79.18 Myalgia, other site; M32.9 Systemic lupus erythematosus, unspecified; M43.22 Fusion of spine, cervical region; M96.1 Postlaminectomy syndrome, not elsewhere classified; Z79.899 Other long term (current) drug therapy

== ENCOUNTER → 2018-06-04 | Outpatient (CLI) | payer OTHER ==
[~2018-06-04] VITALS: Ht 154.9 cm; Wt 67.9 kg
[~2018-06-04] MED LIST changes: +ABILIFY10 MG PO
--- NOTE | ~2018-06-04 | HPC ---
[facility] [address] [place] [address] PAIN MANAGEMENT CONSULTATION Name: GISELLA FINN Room #: REG [facility] Jose Alberto.#: [id number] Admission: 06/04/18 ������������������ Attend Phys: Emile Youngblood DO Discharge: ������������������ Date of : 62 Report #: [id number] THIS REPORT FOR: //name// CC: Cornelia Edwards [facility] physician/PCP Emile Youngblood DATE OF SERVICE: 06/04/2018 CHIEF COMPLAINT: Cervical radicular symptoms, myofascial pain and generalized pain disorder. HISTORY OF PRESENT ILLNESS: As you know, the patient is a 58-year-old female who returns today in followup visit for medication management. She continues to experience pain for which she places pain score 2-3/10. She states pain is aching, throbbing and sore in sensation, exacerbated with activity and stress and improves with medications, heat, cold compresses and repositioning. She has been followed by my partner, Dr. Adan Youngblood since her initial visits with us February 2009. She has been started on medication management to address ongoing pain issues and has been stable on medication for a period of time. She returns requesting refill of her MS Contin 15 mg 3 times a day, totalling 45 morphine equivalents a day along with Percocet 5/325, which she takes 3 a day, totalling 20 morphine equivalents a day, equaling a total of 65 morphine equivalents a day, which places the patient is at moderate risk for opioid concerns. She returns today in followup visit stating about a 60%-70% improvement in overall pain with medication management. She requests refills of medication be provided today. ALLERGIES: No known drug allergies. CURRENT MEDICATIONS: Metoprolol 50 mg once a day, sumatriptan 50 mg p.r.n., Percocet 5/325 one tab every 8 hours p.r.n. for pain, MS Contin 15 mg t.i.d., baclofen 10 mg 3 times a day, prednisone 5 mg per day, melatonin 1 mg 3 times a day, potassium chloride 20 mEq p.o. day, folic acid 1 mg per day, levothyroxine 137 mcg per day, hydrochlorothiazide 25 mg per day, Paxil 40 mg once a day, Requip 0.5 mg once a day, Lipitor 10 mg once a day, Zestril 20 mg once a day, Protonix 20 mg once a day, Zyrtec 10 mg once a day, Valium 5 mg p.r.n., albuterol 2 puffs q. 4 hours p.r.n. pain and trazodone 100 mg p.o. every day. SOCIAL HISTORY: The patient denies tobacco, alcohol or IV or illicit drug use. She is unaccompanied today. IMAGING DATA: No new imaging available. PQRS: The patient has known osteoarthritic changes of the left lower extremity, right lower extremity and low back, bilateral hips, bilateral knees, ankles and [address] [address] PAIN MANAGEMENT CONSULTATION Name: GISELLA FINN Beto Room #: REG [facility] Stefanie#: [id number] Admission: 06/04/18 ������������������ Attend Phys: Emile Youngblood DO Discharge: ������������������ Date of : 62 Report #: [id number] shoulders. She is treated for osteoarthritis. No noted rheumatoid arthritis. She is placing pain today at 2-3/10. She is not a fall risk but reports she has had a stumble and near fall in the last 3 months. She does not use any type of ambulatory device. She is not on blood thinners. She is treated for hypertension. She is on long-term opioid medication and under a contract with our clinic to continue. She is a low risk for opioid addiction. She is placing pain impact score 40/70, moderate interference of daily activities secondary to pain. PHYSICAL EXAMINATION: VITAL SIGNS: Blood pressure 141/84, pulse 74 and respiratory rate 20 and unlabored. The patient is 100% on room air. Height 5 feet 1 inch tall, weight 149.6 pounds and BMI calculated 28.3. GENERAL: Well-developed, well-nourished and well-hydrated 58-year-old female, appears older than stated age, placing pain score today 2-3/10. HEENT: Normocephalic and atraumatic. Pupils equal, round and reactive to light. Speech fluent. EXTREMITIES: Show no clubbing, no cyanosis and no edema. MUSCULOSKELETAL: Upper extremity strength, lower extremity strength is symmetrical 5/5, muscle bulk and tone is symmetrical in comparing left and right upper extremity and left and right lower extremity. Cervical provocation testing is met with increasing pain. Mild restriction of motion noted rightward versus left. Spurling's test is negative. There is palpatory tenderness over the paraspinal musculature of the cervical spine and no spinous process tenderness. ASSESSMENT: 1. Symptomatic cervical radiculopathy. 2. Post-laminectomy syndrome of the cervical spine, status post fusion. 3. Chronic headaches. 4. Cervicogenic headache. 5. Myofascial pain. 6. Systemic lupus erythematosus. 7. Complicated medication management. 8. Chronic intractable pain. PLAN: 1. The patient returns today in followup visit where we have discussed the efficacy of the combination of MS Contin along with Percocet for pain control. She is taking approximately 65 morphine equivalents a day with the combination of the 2 medications. We have discussed this with the patient in the past. The total morphine equivalents of 65 places the patient at a moderate risk for opioid use, thus she is being seen on an every other month basis to monitor her efficacy with medication but also monitor for any potential side effects. Apparently, she is doing very well based on her conversation with us today. She appears to be appropriate. We have taken the liberty of evaluating the patient [facility] [address] [place] [address] PAIN MANAGEMENT CONSULTATION Name: GISELLA FINN Beto Room #: REG [facility]#: [id number] Admission: 06/04/18 ������������������ Attend Phys: Emile Youngblood DO Discharge: ������������������ Date of : 62 Report #: [id number] with our K-TRACS and our Mo-TRACS systems and she appears to be refilling her medications appropriately at a consistent pharmacy. There are no aberrant entries in this evaluation. 2. We reviewed the fact that opiate medications are being used to provide analgesia adequate to support activities of daily living, not attempting to achieve a specific pain score on the 0-10 Visual Analog Scale. The current opiate medications are providing sufficient analgesia to allow the patient to participate in activities of daily living. The patient is not exhibiting any aberrant behavior suggestive of drug diversion. The patient is not having any adverse reactions to medications. The patient is not suffering from daytime somnolence or mental acuity changes. The patient is managing opiate-induced constipation with appropriate jybn-ell-knqknqa agents and dietary considerations. The patient was counseled on concern for caution with operating a motor vehicle while using opiate medications. A physical exam was performed and the patient's functional status was evaluated. All patients with back pain were advised against the bed rest greater than 4 days and were advised to return to normal activities. Pain score assessment was noted and the treatment plan was reviewed with the patient. All current medications, both prescribed and OTC were reviewed and reconciled on the electronic medical record. Tobacco screening was accomplished and smoking cessation was advised when indicated. BMI was noted and diet/exercise modification was recommended for all patients following outside normal parameters. I reviewed with the patient today their responsibilities to safeguard prescription medications, reviewed their responsibility to utilize medications only as prescribed by the physician. They are to seek and receive pain medications only from 1 physician group ( [facility]). They are to use 1 pharmacy and keep the clinic informed if they change pharmacies. Their responsibilities include making followup visits in a timely fashion and to avoid abrupt discontinuation of medication usage. Their responsibilities further include bringing their medications (bottles from the pharmacy with residual pills) to the visit for possible confirmation of pill counts and the patient understands it is their responsibility to submit to random drug screens to ensure both that the medications prescribed are present, and that no other controlled substances are present. All prescriptions provided today were generated electronically. 3. The patient was provided prescription of MS Contin 15 mg dose 1 tab p.o. t.i.d., #90, releasing today and 4 weeks from today, 2 months' worth of medication. 4. The patient was provided a prescription of Percocet 5/325 one tab p.o. q. 8 hours p.r.n. for pain, I have given the patient #75 releasing today and 4 weeks from today, 2 months' worth of medication. 5. The patient was provided prescription of baclofen 10 mg dose 1 tab p.o. q. 8 hours p.r.n. muscle spasming. I have given the patient #90 tablets, 3 refills, [facility] [address] [place] [address] PAIN MANAGEMENT CONSULTATION Name: GISELLA FINN Room #: REG [facility] Stefanie#: [id number] Admission: 06/04/18 ������������������ Attend Phys: Emile Youngblood DO Discharge: ������������������ Date of : 62 Report #: [id number] 4 months with medication. 6. We will see the patient back in followup visit in 2 months for medication management and possible further adjustments in medication therapy to optimize treatment. ��������������������������������������������� ���������������������������������������� By: ��������������������������������������������� [id number] Emile Youngblood DO /nt
[2018-06-04 10:56] VITALS: BP 141/84
--- NOTE | 2018-06-04 11:07 | NUR ---
Pain Clinic Assessment: 1. History of Osteoarthritis: Left Lower Extremity Left Upper Extremity Right Lower Extremity Right Upper Extremity History of Rheumatoid Arthritis: Not Applicable 2. Height: 5 ft. 1 in. 154.9 cm. Weight: 149.6 lb. oz. 67.858 kg. Patient's BMI: 28.3 3. Vital Signs: BP: 141/84 Pulse: 74 Resp: 20 Temp: 02 Sat: 100 ECG Mon: 4. Pain Intensity: 2-3 5. Fall Risk: Dizziness: N Needs help standing or walking: N Fallen in the last 3 months: Y Fall risk comments: 6. Patient on Blood Thinner: None 7. History of Hypertension: Y 8. Opioid Therapy greater than 6 weeks: Y Opiate Contract Signed: 05/23/17 9. Risk Assessment Tool Provided: 1/flex 10. Functional Assessment Tool: 11. Recreational Drug Use: Never Drug Type: Tobacco Use: Former Smoker Tobacco Type: Amount or Packs/day: How Many Years: Alcohol Use: No Frequency: Quant:
== END ==
LOC: PAIN 04-22 06:43
DX: M54.12 Radiculopathy, cervical region (principal); R51 Headache; M79.18 Myalgia, other site; M43.22 Fusion of spine, cervical region; M96.1 Postlaminectomy syndrome, not elsewhere classified; G89.4 Chronic pain syndrome; M32.9 Systemic lupus erythematosus, unspecified; Z79.899 Other long term (current) drug therapy

== ENCOUNTER → 2018-09-02 | Outpatient (CLI) | payer OTHER ==
[~2018-09-02] VITALS: Ht 154.9 cm; Wt 72.7 kg
--- NOTE | ~2018-09-02 | HPC ---
[facility] [address] [place] [address] PAIN MANAGEMENT CONSULTATION Name: GISELLA FINN Room #: REG [facility].#: [id number] Admission: 09/02/18 ������������������ Attend Phys: Emile Youngblood DO Discharge: ������������������ Date of : 62 Report #: [id number] THIS REPORT FOR: //name// CC: Cornelia Edwards MD [facility] physician/PCP Emile Youngblood DATE OF SERVICE: 09/02/2018 REFERRING PHYSICIAN: Dr. Cornelia Edwards. CHIEF COMPLAINT: Cervical radicular symptoms, myofascial pain, generalized pain disorder. HISTORY OF PRESENT ILLNESS: As you know, the patient is a 58-year-old female returning in followup visit for medication management. She feels the combination of MS Contin, baclofen and Percocet worked well for pain control. She has been advised over the past couple of months that opiate medications are being slowly phased out of treatment options, but she wishes to continue the medication therapy at this time. She denies any side effects to the medication including somnolence, decreased mental acuity, disorientation and confusion. She has been on this medication for an extended period of time and is appearing to see improvement with the therapy. She returns requesting refill on medications. She is denying new injury or trauma. ALLERGIES: PENICILLIN. CURRENT MEDICATIONS: Oxycodone, MS Contin, baclofen, aripiprazole, trazodone, ipratropium bromide, tramadol, albuterol, diazepam, pantoprazole, lisinopril, atorvastatin, ropinirole, paroxetine, hydrochlorothiazide, levothyroxine, potassium chloride, prednisone, sumatriptan and metoprolol. SOCIAL HISTORY: The patient denies tobacco, alcohol, IV or illicit drug use. She is retired. She is unaccompanied today. IMAGING: No new imaging available. PQRS: The patient has arthritic changes of the bilateral lumbar spine, bilateral hips, bilateral knees, bilateral ankles and shoulders. She has no known rheumatoid arthritis. She is placing pain intensity today at 2/10. She is not a fall risk, has not had a fall in the last 3 months. She is not on blood thinners, but is treated for hypertension. She is on chronic opioids, she has a low opioid addiction potential. Pain impact score 31/70, moderate interference of daily activities secondary to pain. PHYSICAL EXAMINATION: [facility] [address] [place] [address] PAIN MANAGEMENT CONSULTATION Name: GISELLA FINN Room #: REG [facility] Stefanie#: [id number] Admission: 09/02/18 ������������������ Attend Phys: Emile Youngblood DO Discharge: ������������������ Date of : 62 Report #: [id number] VITAL SIGNS: Blood pressure 137/86, pulse 60, respiratory rate 14 and unlabored. The patient is 100% on room air. Height 5 feet 1 inch tall, weight 160.2 pounds, BMI calculated 30.3. GENERAL: Well-developed, well-nourished, well-hydrated 58-year-old female appearing stated age. Pain is rated at 2/10. HEENT: Normocephalic, atraumatic. Pupils equal, round, reactive to light. EXTREMITIES: Show no clubbing, no cyanosis, no edema. There is noted ecchymosis over the forearms on the left and right side. MUSCULOSKELETAL: Upper extremity strength equal and symmetrical 5/5. Muscle bulk and tone is equal and symmetrical in comparing left upper extremity to right. Cervical provocation testing causes increase in overall pain. Mild restriction of motion. Spurling's test negative. ASSESSMENT: 1. Chronic cervical radiculopathy. 2. Post-laminectomy syndrome of the cervical spine. 3. Chronic headaches. 4. Cervicogenic headache. 5. Myofascial pain. 6. Systemic lupus erythematosus. 7. Complicated medication management utilizing scheduled medications. 8. Chronic intractable pain. PLAN: 1. The patient returns today in followup visit requesting refill on medications. She feels medications are working beneficially for pain control. The patient states she has been active of late and this may have exacerbated her symptoms, but she is doing well with the medications at present. She has requested refill of medications for the next 2 months. We reviewed the fact that opiate medications are being used to provide analgesia adequate to support activities of daily living, not attempting to achieve a specific pain score on the 0-10 Visual Analog Scale. The current opiate medications are providing sufficient analgesia to allow the patient to participate in activities of daily living. The patient is not exhibiting any aberrant behavior suggestive of drug diversion. The patient is not having any adverse reactions to medications. The patient is not suffering from daytime somnolence or mental acuity changes. The patient is managing opiate-induced constipation with appropriate txtu-rqg-llzluie agents and dietary considerations. The patient was counseled on concern for caution with operating a motor vehicle while using opiate medications. A physical exam was performed and the patient's functional status was evaluated. All patients with back pain were advised against the bed rest greater than 4 days and were advised to return to normal activities. Pain score assessment was noted and the treatment plan was reviewed with the patient. All current [facility] [address] [place] [address] PAIN MANAGEMENT CONSULTATION Name: GISELLA FINN Room #: REG [facility] Watts#: [id number] Admission: 09/02/18 ������������������ Attend Phys: Emile Youngblood DO Discharge: ������������������ Date of : 62 Report #: [id number] medications, both prescribed and OTC were reviewed and reconciled on the electronic medical record. Tobacco screening was accomplished and smoking cessation was advised when indicated. BMI was noted and diet/exercise modification was recommended for all patients following outside normal parameters. I reviewed with the patient today their responsibilities to safeguard prescription medications, reviewed their responsibility to utilize medications only as prescribed by the physician. They are to seek and receive pain medications only from 1 physician group ( [facility]). They are to use 1 pharmacy and keep the clinic informed if they change pharmacies. Their responsibilities include making followup visits in a timely fashion and to avoid abrupt discontinuation of medication usage. Their responsibilities further include bringing their medications (bottles from the pharmacy with residual pills) to the visit for possible confirmation of pill counts and the patient understands it is their responsibility to submit to random drug screens to ensure both that the medications prescribed are present, and that no other controlled substances are present. All prescriptions provided today were generated electronically. 2. The patient was provided prescription of MS Contin 15 mg dose 1 tab p.o. t.i.d., #90 tablets, releasing today and 4 weeks from today, 2 months' worth of medication. 3. The patient was provided a prescription of Percocet 5/325 one tab p.o. q. 8 hours p.r.n. for pain, I have given the patient #75 tablets, releasing today, 4 weeks from today, 2 months' worth of medication. 4. The patient was provided prescription of baclofen 10 mg dose 1 tab to 2 tabs p.o. b.i.d., given the patient #150 tablets, which is 2 months' worth of medication. 5. We will see the patient back in followup visit in 2 months for medication management, earlier for interventional treatments. ��������������������������������������������� ���������������������������������������� By: ��������������������������������������������� [id number] Emile Youngblood DO /nt
[2018-09-02 11:30] VITALS: BP 137/86
--- NOTE | 2018-09-02 11:45 | NUR ---
Pain Clinic Assessment: 1. History of Osteoarthritis: Left Lower Extremity Left Upper Extremity Right Lower Extremity Right Upper Extremity History of Rheumatoid Arthritis: Not Applicable 2. Height: 5 ft. 1 in. 154.9 cm. Weight: 160.2 lb. oz. 72.666 kg. Patient's BMI: 30.3 3. Vital Signs: BP: 137/86 Pulse: 60 Resp: 14 Temp: 02 Sat: 100 ECG Mon: 4. Pain Intensity: 2 5. Fall Risk: Dizziness: N Needs help standing or walking: N Fallen in the last 3 months: Y Fall risk comments: 6. Patient on Blood Thinner: None 7. History of Hypertension: Y 8. Opioid Therapy greater than 6 weeks: Y Opiate Contract Signed: 05/23/17 9. Risk Assessment Tool Provided: Izabela/flex 10. Functional Assessment Tool: 11. Recreational Drug Use: Never Drug Type: Tobacco Use: Former Smoker Tobacco Type: Amount or Packs/day: How Many Years: Alcohol Use: No Frequency: Quant:
== END ==
LOC: PAIN 06:41
DX: M54.12 Radiculopathy, cervical region (principal); G89.29 Other chronic pain; L53.8 Other specified erythematous conditions; Z79.899 Other long term (current) drug therapy

== ENCOUNTER → 2018-11-18 | Outpatient (CLI) | payer OTHER ==
[~2018-11-18] VITALS: Ht 154.9 cm; Wt 70.9 kg
[2018-11-18 11:35] VITALS: BP 157/87
--- NOTE | 2018-11-18 11:46 | NUR ---
Pain Clinic Assessment: 1. History of Osteoarthritis: Left Lower Extremity Left Upper Extremity Right Lower Extremity Right Upper Extremity History of Rheumatoid Arthritis: Not Applicable 2. Height: 5 ft. 1 in. 154.9 cm. Weight: 156.2 lb. oz. 70.852 kg. Patient's BMI: 29.5 3. Vital Signs: BP: 157/87 Pulse: 62 Resp: 14 Temp: 02 Sat: 100 ECG Mon: 4. Pain Intensity: 4-5 5. Fall Risk: Dizziness: Y Needs help standing or walking: N Fallen in the last 3 months: Y Fall risk comments: 6. Patient on Blood Thinner: None 7. History of Hypertension: Y 8. Opioid Therapy greater than 6 weeks: Y Opiate Contract Signed: 05/23/17 9. Risk Assessment Tool Provided: Izabela/flex 10. Functional Assessment Tool: 11. Recreational Drug Use: Never Drug Type: Tobacco Use: Former Smoker Tobacco Type: Amount or Packs/day: How Many Years: Alcohol Use: No Frequency: Quant:
--- NOTE | 2018-11-25 11:15 | HPC ---
[facility] [address] [place] [address] PAIN MANAGEMENT CONSULTATION Name: GISELLA FINN [id number] Admission: 11/18/18 Attend Phys: Emile Youngblood DO Discharge: Date of : 62 Report #: [id number] THIS REPORT FOR: //name// CC: Cornelia Edwards [facility] physician/PCP Emile Youngblood DATE OF SERVICE: 11/18/2018 CHIEF COMPLAINT: Cervical radicular symptoms, myofascial pain, generalized pain disorder. HISTORY OF PRESENT ILLNESS: As you know, the patient is a 58-year-old female following up for medication management. She feels the combination of medications working well for pain control. She is denying side effects to the therapy including somnolence, decrease in mental acuity, disorientation, confusion, mental slowing or constipation. She feels the medications do provide excellent benefit for pain control despite her pain report of 4-5/10 today. She indicates pain is exacerbated with activity and stress and improves with medications, heat and cold compresses, rest and repositioning. She returns today in followup visit for refill of medications at current dosing. ALLERGIES: PENICILLIN. CURRENT MEDICATIONS: Oxycodone, MS Contin, baclofen, Abilify, trazodone, ipratropium bromide, tramadol, albuterol, triamcinolone acetate, diazepam, pantoprazole, lisinopril, atorvastatin, ropinirole, Paxil, hydrochlorothiazide, levothyroxine, potassium chloride, prednisone, quinacrine, sumatriptan. SOCIAL HISTORY: The patient denies tobacco, alcohol, IV or illicit drug use. She is retired. She is unaccompanied today. She states she is in the process of moving from her current home into a home in [place]. She states no changes in social history other than this. IMAGING: No new imaging available. PQRS: The patient has known arthritic changes of the bilateral lumbar spine, bilateral hips, bilateral knees, bilateral ankles and shoulders. She does not have a diagnosis of rheumatoid arthritis. She is placing pain intensity at 4/10-5/10. She is not a fall risk, but has had a fall in last 3 months due to "tripping over objects." She does not use any type of ambulatory device. She is not on blood thinners. She is treated for hypertension. She has been on chronic opioids for an extended period of time, has a low opioid addiction potential based on our assessment tool, pain impact score 31/70 indicating moderate interference of daily activities [place] [address] PAIN MANAGEMENT CONSULTATION Name: GISELLA FINN Room #: REG [facility] Stefanie#: [id number] Admission: 11/18/18 Attend Phys: Emile Youngblood DO Discharge: Date of : 62 Report #: [id number] PHYSICAL EXAMINATION: VITAL SIGNS: Blood pressure 157/87, pulse 62, respiratory rate 14 and unlabored. The patient is 100% on room air. Height 5 feet 1 inch tall, weight 156.2 pounds, BMI calculated 29.5. GENERAL: Well-developed, well-nourished, well-hydrated 58-year-old female appearing stated age, pain is rated anywhere from 4-5/10. HEENT: Normocephalic, atraumatic. Pupils equal, round, reactive to light. EXTREMITIES: Show no clubbing, no cyanosis, and no edema. MUSCULOSKELETAL: The patient has equal and symmetrical upper extremity strength deconditioned bilaterally. Muscle strength 5/5. Cervical provocation testing is met with increased pain with rotation and lateral flexion. Mild restriction of motion. Spurling's test remains negative. There is noted significant amount of ecchymosis over the arms bilaterally. ASSESSMENT: 1. Chronic cervical radiculopathy. 2. Post-laminectomy syndrome of the cervical spine. 3. Chronic headaches. 4. Cervicogenic headaches. 5. Myofascial pain. 6. Systemic lupus erythematosus. 7. Complicated medication management utilizing scheduled medications. 8. Chronic intractable pain. PLAN: 1. The patient returns today in followup visit requesting refill on medications. She feels medications are working beneficially for pain control. She is denying side effects of sleepiness, disorientation, confusion, mental slowing or constipation with their use. She has requested refill of medications at current therapy as she is noticing good benefit despite that elevated pain level of 4-5/10. 2. We reviewed the fact that opiate medications are being used to provide analgesia adequate to support activities of daily living, not attempting to achieve a specific pain score on the 0-10 Visual Analog Scale. The current opiate medications are providing sufficient analgesia to allow the patient to participate in activities of daily living. The patient is not exhibiting any aberrant behavior suggestive of drug diversion. The patient is not having any adverse reactions to medications. The patient is not suffering from daytime somnolence or mental acuity changes. The patient is managing opiate-induced constipation with appropriate huzd-cpq-dksetdy agents and dietary considerations. The patient was counseled on concern for caution with operating a motor vehicle while using opiate medications. A physical exam was performed and the patient's functional status was evaluated. All patients with back pain were advised against the bed rest greater than 4 days and were advised to return to normal activities. Pain score assessment was [address] [place] [address] PAIN MANAGEMENT CONSULTATION Name: GISELLA FINN Room #: REG [facility]#: [id number] Admission: 11/18/18 Attend Phys: Emile Youngblood DO Discharge: Date of : 62 Report #: [id number] noted and the treatment plan was reviewed with the patient. All current medications, both prescribed and OTC were reviewed and reconciled on the electronic medical record. Tobacco screening was accomplished and smoking cessation was advised when indicated. BMI was noted and diet/exercise modification was recommended for all patients following outside normal parameters. I reviewed with the patient today their responsibilities to safeguard prescription medications, reviewed their responsibility to utilize medications only as prescribed by the physician. They are to seek and receive pain medications only from 1 physician group ( [facility]). They are to use 1 pharmacy and keep the clinic informed if they change pharmacies. Their responsibilities include making followup visits in a timely fashion and to avoid abrupt discontinuation of medication usage. Their responsibilities further include bringing their medications (bottles from the pharmacy with residual pills) to the visit for possible confirmation of pill counts and the patient understands it is their responsibility to submit to random drug screens to ensure both that the medications prescribed are present, and that no other controlled substances are present. All prescriptions provided today were generated electronically. 3. The patient was provided prescription of baclofen 10 mg dose 1 tab p.o. t.i.d. to 2 tabs p.o. t.i.d. She was given #150 tablets, 2 refills, 3 months' worth of medication. 4. The patient was provided refill prescription of MS Contin 15 mg dose 1 tab p.o. t.i.d., #90, releasing today, 4 weeks from today, 2 months' worth of medication. 5. The patient was provided refill prescription of his oxycodone/acetaminophen 5/325 mg dose q. 8 hours p.r.n. pain. I have given the patient #75 tablets, releasing today and 4 weeks from today, 2 months' worth of medication. 6. We will see the patient back in followup visit for medication management in 2 months. She will be following up with our nurse practitioner. <ELECTRONICALLY SIGNED> By: Emile Youngblood DO 11/25/18 1115 [id number] Emile Youngblood DO /nt
== END ==
LOC: PAIN 06:52
DX: M54.12 Radiculopathy, cervical region (principal); M96.1 Postlaminectomy syndrome, not elsewhere classified; M79.18 Myalgia, other site; M32.9 Systemic lupus erythematosus, unspecified; G89.4 Chronic pain syndrome; Z79.891 Long term (current) use of opiate analgesic; R51 Headache; Z88.0 Allergy status to penicillin; Z79.899 Other long term (current) drug therapy

== ENCOUNTER → 2019-02-10 | Outpatient (CLI) | payer OTHER ==
[~2019-02-10] VITALS: Ht 154.9 cm; Wt 67.9 kg
[~2019-02-10] MED LIST changes: +NORVASC 2.5 MG2.5 M1 PO
[2019-02-10 13:02] VITALS: BP 152/61
--- NOTE | 2019-02-10 13:14 | NUR ---
Pain Clinic Assessment: 1. History of Osteoarthritis: BACK KNEES History of Rheumatoid Arthritis: HANDS 2. Height: 5 ft. 1 in. 154.9 cm. Weight: 149.8 lb. oz. 67.949 kg. Patient's BMI: 28.3 3. Vital Signs: BP: 152/61 Pulse: 64 Resp: 16 Temp: 02 Sat: 99 ECG Mon: 4. Pain Intensity: 4 5. Fall Risk: Dizziness: N Needs help standing or walking: N Fallen in the last 3 months: Y Fall risk comments: 6. Patient on Blood Thinner: None 7. History of Hypertension: Y 8. Opioid Therapy greater than 6 weeks: Y Opiate Contract Signed: 05/23/17 9. Risk Assessment Tool Provided: 1/low 10. Functional Assessment Tool: 11. Recreational Drug Use: Never Drug Type: Tobacco Use: Former Smoker Tobacco Type: Amount or Packs/day: How Many Years: Alcohol Use: No Frequency: Quant:
--- NOTE | 2019-02-11 14:53 | HPC ---
[facility] [address] [place] [address] PAIN MANAGEMENT CONSULTATION Name: GISELLA FINN [id number] Admission: 02/10/19 Attend Phys: Lani Cannon Discharge: Date of : 62 Report #: [id number] THIS REPORT FOR: //name// CC: DEDE Cannon Physician staff DATE OF SERVICE: 02/10/2019 CHIEF COMPLAINT: Cervical radiculopathy, myofascial pain. HISTORY OF PRESENT ILLNESS: This is a very pleasant 58-year-old female who returns to the pain clinic today for refill of her medications that she uses to treat her chronic ongoing pain that is located in her neck, back, legs, hands, multiple pain generators, rating it 4/10. It is worse with any activity or stress, but she believes that her medications are very beneficial in controlling her pain. She is able to be as active as she would like with no side effects of her medications. Today she would like a refill of these medications. ALLERGIES: PENICILLIN. CURRENT LIST OF MEDICATIONS: Amlodipine 2 mg daily, Percocet 5/325 p.r.n., MS Contin 15 mg t.i.d., baclofen 10 mg p.r.n., Abilify 10 mg daily, Lopressor 50 mg at bedtime, Imitrex as needed, prednisone 5 mg daily, potassium 20 mEq daily, Synthroid 137 mcg daily, hydrochlorothiazide 25 mg daily, Paxil 40 mg daily, Requip 0.5 mg at bedtime, Lipitor 10 mg at bedtime, Protonix 20 mg daily, Valium p.r.n. PQRS: 1. She has known arthritic changes in her back, knees and hands, hips, ankles and shoulders. She does not have a diagnosis of rheumatoid arthritis. 2. Height is 5 feet 1 inch, weight is 149, BMI is 28. 3. Vital signs 152/61, pulse is 64, respirations 16, oxygen sat is 99. 4. Pain score is 4/10. 5. Denies dizziness, does not need help walking or standing, has fallen in the last 3 months. 6. She is not on any blood thinners, but does take medicine for hypertension. 7. Opioid therapy is greater than 6 weeks; therefore, an opiate signed contract is on the chart. Risk assessment is low. Functional assessment is . 8. Recreational drug use, she denies. She is a former smoker and does not drink alcohol. According to the prescription monitoring system, the patient is filling appropriately for her medications. She is past due to fill her medications. She has a recent drug screen on the chart that is appropriate as well. She tells me she does safeguard her meds at all times. [address] [address] PAIN MANAGEMENT CONSULTATION Name: GISELLA FINN Room #: REG [facility] Watts#: [id number] Admission: 02/10/19 Attend Phys: Lani Cannon Discharge: Date of : 62 Report #: [id number] PHYSICAL EXAMINATION: GENERAL: This is a well-developed, well-nourished, well-hydrated 58-year-old female who appears her stated age, placing her current pain score at 4/10. HEENT: Normocephalic, atraumatic. Pupils equal, round and reactive to light. EXTREMITIES: No clubbing, no cyanosis, no edema. MUSCULOSKELETAL: Cervical provocation testing is met with increased pain with rotation and flexion. She has slight restriction of motion of her cervical spine. Pain and tenderness across the lumbosacral region as well. The patient has equal and symmetrical upper extremity strength, but deconditioned. Strength is 5/5. The patient walks with a slightly antalgic gait. ASSESSMENT: 1. Chronic cervical radiculopathy. 2. Post-laminectomy syndrome of the cervical spine. 3. Chronic headaches. 4. Cervicogenic headaches. 5. Myofascial pain. 6. Systemic lupus erythematosus. 7. Chronic intractable pain. 8. Complex medical management using scheduled meds. We reviewed the fact that opiate medications are being used to provide analgesia adequate to support activities of daily living, not attempting to achieve a specific pain score on the 0-10 Visual Analog Scale. The current opiate medications are providing sufficient analgesia to allow the patient to participate in activities of daily living. The patient is not exhibiting any aberrant behavior suggestive of drug diversion. The patient is not having any adverse reactions to medications. The patient is not suffering from daytime somnolence or mental acuity changes. The patient is managing opiate-induced constipation with appropriate icth-eax-cgoaqfe agents and dietary considerations. The patient was counseled on concern for caution with operating a motor vehicle while using opiate medications. I reviewed with the patient today their responsibilities to safeguard prescription medications, reviewed their responsibility to utilize medications only as prescribed by the physician. They are to seek and receive pain medications only from 1 physician group ([facility]). They are to use 1 pharmacy and keep the clinic informed if they change pharmacies. Their responsibilities include making followup visits in a timely fashion and to avoid abrupt discontinuation of medication usage. Their responsibilities further include bringing their medications (bottles from the pharmacy with residual pills) to the visit for possible confirmation of pill counts and the patient understands it is their responsibility to submit to random drug screens to ensure both that the medications prescribed are present, and that no other controlled substances are present. All prescriptions provided today were [facility] [address] [place] [address] PAIN MANAGEMENT CONSULTATION Name: GISELLA FINN Room #: REG [facility]#: [id number] Admission: 02/10/19 Attend Phys: Lani Cannon Discharge: Date of : 62 Report #: [id number] generated electronically. PLAN: 1. We discussed treatment options with the patient today. The patient finds the medications very beneficial without side effects or significant constipation. She does use sqew-exf-lwifnti medicines as needed. She reports that she is doing quite well with even the change of her medications since we had decreased them. Her body has adjusted to them and finds this lower dose beneficial. 2. Scripts given today for MS Contin 15 mg, #90, for today and 4-week and Percocet 5/325, #75 for today and 4-week and these were sent electronically by Dr. Emile Youngblood. He did see the patient in collaborated care today. 3. The patient reminded to call in appropriate time frame when she fills her last prescription for another appointment, so she does not go through withdrawal and run out of her medications. She does not experience any withdrawal symptoms today, but has been out of her medications for 2 days. 4. Patient seen in collaboration with Dr Emile Youngblood. <ELECTRONICALLY SIGNED> By: Lani Cannon 02/11/19 1453 [id number] Lani Cannon /elsa
== END ==
LOC: PAIN 06:57
DX: M54.12 Radiculopathy, cervical region (principal); M96.1 Postlaminectomy syndrome, not elsewhere classified; M79.18 Myalgia, other site; M32.9 Systemic lupus erythematosus, unspecified; G89.4 Chronic pain syndrome; Z79.891 Long term (current) use of opiate analgesic

== ENCOUNTER → 2019-04-21 | Outpatient (CLI) | payer OTHER ==
[~2019-04-21] VITALS: Ht 162.6 cm; Wt 69.4 kg
[2019-04-21 12:38] VITALS: BP 153/77
--- NOTE | 2019-04-21 12:39 | NUR ---
Pain Clinic Assessment: 1. History of Osteoarthritis: BACK KNEES History of Rheumatoid Arthritis: HANDS 2. Height: 5 ft. 4 in. 162.6 cm. Weight: 153.0 lb. oz. 69.400 kg. Patient's BMI: 26.2 3. Vital Signs: BP: 153/77 Pulse: 69 Resp: 18 Temp: 02 Sat: 98 ECG Mon: 4. Pain Intensity: 4-5 5. Fall Risk: Dizziness: N Needs help standing or walking: N Fallen in the last 3 months: Y Fall risk comments: 6. Patient on Blood Thinner: None 7. History of Hypertension: Y 8. Opioid Therapy greater than 6 weeks: Y Opiate Contract Signed: 05/23/17 9. Risk Assessment Tool Provided: 1/flex 10. Functional Assessment Tool: 11. Recreational Drug Use: Never Drug Type: Tobacco Use: Former Smoker Tobacco Type: Amount or Packs/day: How Many Years: Alcohol Use: No Frequency: Quant:
--- NOTE | 2019-04-22 08:34 | HPC ---
[facility] [address] [place] [address] PAIN MANAGEMENT CONSULTATION Name: GISELLA FINN Room #: REG [facility] Jose Alberto.#: [id number] Admission: 04/21/19 Attend Phys: Lani Cannon Discharge: Date of : 62 Report #: [id number] THIS REPORT FOR: //name// CC: DEDE Youngblood DO Physician staff DATE OF SERVICE: 04/21/2019 CHIEF COMPLAINT: Cervical radiculopathy, myofascial pain. HISTORY OF PRESENT ILLNESS: This is a very pleasant 58-year-old female who returns to the pain clinic today for refill of her medications. She does suffer from lupus as well as myofascial pain and has pain in multiple areas that is diffuse. She also suffers from cervical radiculopathy in her neck down her bilateral arms. She feels that the pain management regimen that she is on with the morphine and oxycodone are very beneficial in controlling her pain. Today, she rates at a 4/5, which is slightly higher than her normal pain. She states that she forgot to take her morphine before traveling up here today for her appointment. She does report the activity and stress do increase her pain, but the use of her medications as well as heating pad or ice packs are very beneficial. She denies any problems with constipation currently. She said she has had issues with that in the past, but that has subsided. The patient is requesting refills of her medications, though she is not needing baclofen refill today. She takes this very sparingly because it does make her slightly drowsy, but is beneficial in reducing muscle spasms. ALLERGIES: PENICILLIN. CURRENT LIST OF MEDICATIONS: MS Contin 15 mg q. 8 hours, oxycodone 5/325 p.r.n., amlodipine, baclofen, Abilify, metoprolol, Imitrex, prednisone, potassium, levothyroxine, hydrochlorothiazide, Paxil, Requip, Lipitor, Protonix, and ProAir. PQRS: 1. She does have diffuse osteoarthritic changes as well as lupus and rheumatoid arthritis in her hands. 2. Height is 5 feet 4 inches, weight is 153, BMI is 26. 3. Vital signs 153/77, pulse is 69, respirations 18, oxygen sat is 98. 4. Pain score is 4-5. 5. Denies dizziness, does not need help walking or standing, though she has fallen in the last 3 months. 6. The patient is not on any blood thinners, but does take medicine for hypertension. Her opioid therapy is greater than 6 weeks; therefore, an opioid [address] [address] PAIN MANAGEMENT CONSULTATION Name: GISELLA FINN Room #: REG BETH Watts#: [id number] Admission: 04/21/19 Attend Phys: Lani Cannon Discharge: Date of : 62 Report #: [id number] signed contract is on the chart. Risk assessment is low. Functional assessment is 31/70. 7. Recreational drug use, she denies. She is a former smoker and does not drink alcohol. According to the prescription monitoring system, patient is due to fill her medications next week. She has been filling in a timely fashion with no aberrant fills. There is a recent drug screen on the chart. According to the CDC guidelines, her morphine mEq is 67 MME per day. PHYSICAL EXAMINATION: GENERAL: This is alert and orientated, well-hydrated, slightly sam face 58-year-old, appears her stated age, placing her current pain score 4-5. HEENT: Normocephalic, atraumatic. Extraocular eye muscles are intact. Mucous membranes are moist. EXTREMITIES: No clubbing, no cyanosis, no edema. She does have a recent skin tear on her left hand that is healing. MUSCULOSKELETAL: Cervical provocation testing is met with increased pain in flexion and rotational movements. She has restriction in her cervical spine. She has tenderness in her lumbosacral region. She walks with a slightly antalgic gait. Her lower extremity strength is diminished due to deconditioning at 4/5. ASSESSMENT: 1. Chronic cervical radiculopathy. 2. Post-laminectomy syndrome of the cervical spine. 3. Chronic headaches. 4. Cervicogenic headaches. 5. Myofascial pain. 6. Systemic lupus erythematosus on prednisone therapy. 7. Chronic intractable pain. 8. Complex medical management using scheduled medications. We reviewed the fact that opiate medications are being used to provide analgesia adequate to support activities of daily living, not attempting to achieve a specific pain score on the 0-10 Visual Analog Scale. The current opiate medications are providing sufficient analgesia to allow the patient to participate in activities of daily living. The patient is not exhibiting any aberrant behavior suggestive of drug diversion. The patient is not having any adverse reactions to medications. The patient is not suffering from daytime somnolence or mental acuity changes. The patient is managing opiate-induced constipation with appropriate quag-odr-zudflxo agents and dietary considerations. The patient was counseled on concern for caution with operating a motor vehicle while using opiate medications. PLAN: [address] [address] PAIN MANAGEMENT CONSULTATION Name: GISELLA FINN Room #: REG BETH Watts#: [id number] Admission: 04/21/19 Attend Phys: Lani Cannon Discharge: Date of : 62 Report #: [id number] 1. We discussed treatment options with the patient today. The patient finds her medications very beneficial enabling her to be as active as she would like. She has recently moved into a new house and having to paint the rooms. This has been keeping her quite dizzy, but she is able to accomplish this by using her medications. 2. We will refill her MS Contin 15 mg every 8 hours, #90, for today and 4-week release and Percocet 5/325, #75 for today and 4-week release. 3. The patient is not needing baclofen refill currently today, but she will call if this is needed before her next appointment. 4. The patient is seen in collaboration with Dr. Emile Youngblood. <ELECTRONICALLY SIGNED> By: Lani Cannon 04/22/19 0834 [id number] 29 Lani Cannon /elsa
== END ==
LOC: PAIN 06:57
DX: M54.12 Radiculopathy, cervical region (principal); M96.1 Postlaminectomy syndrome, not elsewhere classified; R51 Headache; M79.18 Myalgia, other site; G89.4 Chronic pain syndrome; Z79.891 Long term (current) use of opiate analgesic

== ENCOUNTER → 2019-07-14 | Outpatient (CLI) | payer OTHER ==
--- NOTE | 2019-07-14 11:31 | HPC ---
[facility] [place] [address] PAIN MANAGEMENT CONSULTATION Name: GISELLA FINN Room #: REG [facility].#: [id number] Admission: 07/14/19 Attend Phys: Lani Cannon Discharge: Date of : 62 Report #: [id number] THIS REPORT FOR: cc: DEDE ZAPIEN not on staff Lani Cannon ~ CC: Emile Youngblood DO DATE OF SERVICE: 07/14/2019 This is a telemedicine appointment with the patient via the telephone due to the COVID virus from 9:55 to 10:11. CHIEF COMPLAINT: Cervical radiculopathy, myofascial pain. HISTORY OF PRESENT ILLNESS: This is a pleasant 59-year-old female who is having a telemedicine appointment due to her immunosuppression being on high dose prednisone. During this COVID virus, she is afraid to come to the clinic, so we are doing a telemedicine appointment via the telephone with her today. The patient is reporting her pain score as 2-3, but she is lying in bed currently. She says normally her pain is a 5-6 when she is busy with activity. She reports that she has cut back on some of her medications because she was worried that she could not come into our office during this outbreak of COVID. She is thankful that we are now able to do telemedicine appointments. She states that she has not been sleeping well due to COVID and decreasing her medicine so she is hopeful she will be able to return to her previous level of medications after this visit today. She reports that her pain is in her neck and bilateral shoulders and is an achy, tender pain. She has significant muscle spasms as well due to her myofascial pain. She states that activity and stress do increase her pain and that her medications have been beneficial. Though not as helpful recently since she has slowly decreased her morphine to 2 tablets a day and is currently out of her oxycodone. She denies any problems with constipation or daytime sleepiness. The patient states that she is living with her son. He has recently bought a [employer]. He is encouraging her to start doing exercises on this. She is reluctant to do that because she feels that the jarring may not be good for her lower back. The patient is hopeful to start yoga soon and start walking in his swimming pool as the weather improves. ALLERGIES: PENICILLIN. CURRENT LIST OF MEDICATIONS: Morphine sulfate 15 mg t.i.d., oxycodone 5/325 p.r.n., amlodipine, baclofen, Abilify, metoprolol, Imitrex, prednisone, potassium, Synthroid, hydrochlorothiazide, Paxil, Requip, Lipitor, Protonix, Valium, Azmacort and ProAir albuterol. [facility] [address] [place] [address] PAIN MANAGEMENT CONSULTATION Name: GISELLA FINN Room #: REG [facility] Watts#: [id number] Admission: 07/14/19 Attend Phys: Lani Cannon Discharge: Date of : 62 Report #: [id number] PQRS: 1. She has diffuse osteoarthritic changes as well as lupus and rheumatoid arthritis in her hands. 2. Height and weight and vital signs were deferred due to this telemedicine appointment. Pain score is 2-3, lying down 5-6 when she is up ambulatory. She denies dizziness, does not need help walking or standing. She has not fallen in the last 3 months. 3. The patient is not on any blood thinners. She does take medicine for hypertension. 4. Her opioid therapy is greater than 6 weeks; therefore, she is on opioid signed contract. 5. Risk assessment tool is low. Functional assessment is . 6. Recreational drug use, she denies. She is a former smoker and does not drink alcohol. According to the prescription monitoring system, the patient is due to fill her medications. There is an appropriate drug screen on the chart. We will reassess that at her next appointment. PHYSICAL EXAMINATION: This is a review of systems since this is a telemedicine appointment. GENERAL: This is alert and orientated 59-year-old who is answering my questions completely via the telephone. No shortness of breath is noted during our phone conversation. HEENT: She is not having any problems with her hearing. MUSCULOSKELETAL: The patient states that she has tenderness in her neck that radiates into her shoulders. She also has various myofascial issues with increased pain. She tells me that she is able to get around and walking, though very slowly. ASSESSMENT: 1. Chronic cervical radiculopathy. 2. Post-laminectomy syndrome of the cervical spine. 3. Chronic headaches. 4. Cervicogenic headaches. 5. Myofascial pain. 6. Systemic lupus erythematosus, on prednisone therapy. 7. Chronic intractable pain. 8. Complex medical management using scheduled meds. We reviewed the fact that opiate medications are being used to provide analgesia adequate to support activities of daily living, not attempting to achieve a specific pain score on the 0-10 Visual Analog Scale. The current opiate medications are providing sufficient analgesia to allow the patient to participate in activities of daily living. The patient is not exhibiting any [facility] [address] [place] [address] PAIN MANAGEMENT CONSULTATION Name: GISELLA FINN Room #: REG BETH Watts#: [id number] Admission: 07/14/19 Attend Phys: Lani Cannon Discharge: Date of : 62 Report #: [id number] aberrant behavior suggestive of drug diversion. The patient is not having any adverse reactions to medications. The patient is not suffering from daytime somnolence or mental acuity changes. The patient is managing opiate-induced constipation with appropriate weua-wny-bmpexky agents and dietary considerations. The patient was counseled on concern for caution with operating a motor vehicle while using opiate medications. PLAN: 1. We discussed treatment options with the patient today. The patient has decreased her morphine slightly as well as her oxycodone to make them last longer during this COVID outbreak. I encouraged her to resume her morphine at two a day, then increasing back to 3 a day when she refills them today and encouraged her to take her Percocet twice a day as well. Scripts will be sent electronically by Dr. Emile Youngblood for MS Contin 15 mg, #90, for today and 4 weeks supply as well as Percocet 5/325, #75, for today and 4 weeks supply. 2. We will refill her baclofen and send this electronically as well 150 with 2 additional refills will be sent. 3. I encouraged the patient to start doing some exercising and not be in her house all day. The patient verbalizes understanding. She does tell me that she does get dressed everyday as to not be too depressed during this COVID virus since she is staying at home. I encouraged her to walk outside every day and do some form of exercise, but not to jump on the trampoline. 5. The patient is visitied today in collaboration with Dr. Emile Youngblood who was here daily during this telephone conference. The patient will return in clinic in 2 months. <ELECTRONICALLY SIGNED> By: Lani Cannon 07/14/19 1131 [id number] [id number] Lani Cannon /nt
== END ==
LOC: PAIN 06-30 09:39 → TELEPC 08:41 → PAIN 08:41
DX: M54.12 Radiculopathy, cervical region (principal); M79.18 Myalgia, other site; R51 Headache; G89.29 Other chronic pain; M96.1 Postlaminectomy syndrome, not elsewhere classified; M32.9 Systemic lupus erythematosus, unspecified; F11.20 Opioid dependence, uncomplicated; Z88.0 Allergy status to penicillin; Z79.899 Other long term (current) drug therapy

== ENCOUNTER → 2019-10-06 | Outpatient (CLI) | payer OTHER ==
[~2019-10-06] VITALS: Ht 154.9 cm; Wt 60.8 kg
[~2019-10-06] MED LIST changes: +MORPHINE SULFAT15 MG PO; +OXYCODONE-ACET1 EACH PO
[2019-10-06 11:08] VITALS: BP 129/67
--- NOTE | 2019-10-06 11:21 | NUR ---
Pain Clinic Assessment: 1. History of Osteoarthritis: BACK KNEES History of Rheumatoid Arthritis: LUPUS 2. Height: 5 ft. 1 in. 154.9 cm. Weight: 134.0 lb. oz. 60.782 kg. Patient's BMI: 25.3 3. Vital Signs: BP: 129/67 Pulse: 56 Resp: 14 Temp: 02 Sat: 100 ECG Mon: 4. Pain Intensity: 4-5 5. Fall Risk: Dizziness: N Needs help standing or walking: N Fallen in the last 3 months: N Fall risk comments: 6. Patient on Blood Thinner: None 7. History of Hypertension: Y 8. Opioid Therapy greater than 6 weeks: Y Opiate Contract Signed: 05/23/17 9. Risk Assessment Tool Provided: 1/flex 10. Functional Assessment Tool: 11. Recreational Drug Use: Never Drug Type: Tobacco Use: Former Smoker Tobacco Type: Amount or Packs/day: How Many Years: Alcohol Use: No Frequency: Quant:
--- NOTE | 2019-10-07 15:19 | HPC ---
[facility] [address] [place] [address] PAIN MANAGEMENT CONSULTATION Name: GISELLA FINN Room #: REG [facility]#: [id number] Admission: 10/06/19 Attend Phys: Lani Cannon Discharge: Date of : 62 Report #: [id number] THIS REPORT FOR: cc: DEDE ZAPIEN not on staff Lani Cannon ~ CC: Emile Youngblood DO DATE OF SERVICE: 10/06/2019 CHIEF COMPLAINT: Cervical radiculopathy. HISTORY OF PRESENT ILLNESS: This is a very pleasant 59-year-old female who returns to the pain clinic today for a refill of her medications. She reports that she has been able to decrease her morphine sulfate from 3 times a day to twice a day and continuing to take her breakthrough pain medicine, oxycodone, 2-3 times a day. She feels that her pain is controlled by this decrease rating her pain score of 4-5/10 today. She knows she does have days that she has increased activity that does cause her increased pain, but overall, she believes that she is able to tolerate this lower dose and is requesting less medications today. The patient reports that her pain is mostly in her neck and shoulders, but occasionally, she does have pain in her lower back and hips and legs. It is an aching pain, worse with movement. The repositioning, heat and medications are beneficial. She denies any problems with constipation or daytime somnolence as a result of her medications. The patient tells me she has lost 21 pounds since we last weighed her in March. She has recently started Keto Fast, which is 2 pills a day that she takes. She started this in August and since that time has lost these 21 pounds. She reports she has much more energy since starting this medication for weight loss as well. Her primary care doctor is aware of this medicine that she is taking. ALLERGIES: PENICILLIN. CURRENT LIST OF MEDICATIONS: Oxycodone 5/325 p.r.n., morphine sulfate 15 mg b.i.d., baclofen p.r.n., amlodipine, Abilify, Lopressor, Imitrex, prednisone, potassium, Synthroid, hydrochlorothiazide, Paxil, ropinirole, Lipitor, Protonix, Valium, Azmacort, ProAir and Keto Fast. PQRS: 1. She has arthritic changes in her back and knees. She also has rheumatoid arthritis where she is treated for lupus. 2. Height is 5 feet 1 inch, weight is 134, BMI is 25, again this is a 21-[place] [address] PAIN MANAGEMENT CONSULTATION Name: GISELLA FINN Room #: REG [facility] Stefanie#: [id number] Admission: 10/06/19 Attend Phys: Lani Cannon Discharge: Date of : 62 Report #: [id number] weight loss per her report since March. 3. Vital signs 129/67, pulse is 56, respirations 14, oxygen sat is 100, pain score is 4-5. 4. Denies dizziness, does not need help walking or standing, has not fallen in the last 3 months. 5. The patient is not on any blood thinners, but does take medicine for hypertension. Her opioid therapy is greater than 6 weeks; therefore, an opioid signed contract is on the chart. Risk assessment tool is low. Functional assessment is . 6. Recreational drug use, she denies. She is a former smoker and does not drink alcohol. According to the prescription monitoring system, the patient is filling appropriately. Her MME according to the CDC guidelines with her higher dose was 67. At the decrease of her medication, she is now at 52 MMEs per day; therefore, we will be able to see her on a 3-month interval. We will collect a random drug screen on her today. PHYSICAL EXAMINATION: GENERAL: This is a well-developed, well-nourished, well-hydrated 59-year-old female who appears her stated age, placing her current pain score at 4-5. HEENT: Normocephalic, atraumatic. Extraocular eye muscles are intact. She is wearing a mask. EXTREMITIES: No clubbing, no cyanosis, no edema. MUSCULOSKELETAL: Cervical provocation testing is met with increased pain with flexion and extension movements. She has restriction of her cervical spine due to previous surgeries. Does have slight tenderness in her lumbar spine as well. Complains of pain in multiple joints of elbows, shoulders, hips and knees. She has a slightly antalgic gait. Her lower extremity strength is diminished due to deconditioning at 4/5. ASSESSMENT: 1. Chronic cervical radiculopathy. 2. Post-laminectomy syndrome of the cervical spine. 3. Chronic headaches. 4. Cervicogenic headaches. 5. Myofascial pain. 6. Systemic lupus erythematosus, on prednisone therapy. 7. Complex medical management while utilizing scheduled medications. We reviewed the fact that opiate medications are being used to provide analgesia adequate to support activities of daily living, not attempting to achieve a specific pain score on the 0-10 Visual Analog Scale. The current opiate medications are providing sufficient analgesia to allow the patient to participate in activities of daily living. The patient is not exhibiting any aberrant behavior suggestive of drug diversion. The patient is not having any [address] [address] PAIN MANAGEMENT CONSULTATION Name: GISELLA FINN Room #: REG [facility]#: [id number] Admission: 10/06/19 Attend Phys: Lani Cannon Discharge: Date of : 62 Report #: [id number] adverse reactions to medications. The patient is not suffering from daytime somnolence or mental acuity changes. The patient is managing opiate-induced constipation with appropriate deaz-zbe-zrvlkuv agents and dietary considerations. The patient was counseled on concern for caution with operating a motor vehicle while using opiate medications. PLAN: 1. We discussed treatment options with the patient today. The patient has been able to decrease her morphine from 3 tablets to 2 of 15 mg and would like to continue at this lower dose. Scripts will be sent electronically by Dr. Emile Youngblood for MS 15, #60, for today, 4-week and 8-week release. 2. We will continue her on her oxycodone 5/325, #75, for 3 months as well. 3. We will collect a random drug screen on this patient since it had been greater than a year. 4. The patient is not in need of her baclofen. She does take this on an as needed basis. 5. We congratulated her on her weight loss of 21 pounds. We encouraged her not to be too much more aggressive in her weight loss since her BMI is now at 25. The patient verbalizes understanding. She would like to lose another 5-10 pounds and then hopefully try to stable her weight loss. 6. The patient is seen in collaboration with Dr. Emile Youngblood. <ELECTRONICALLY SIGNED> By: Lani Cannon 10/07/19 1519 1322 [id number] Lani Cannon /nt
== END ==
LOC: PAIN 06:56
PROVIDERS: ATTEND Clinical Nurse Specialist Adult Health
DX: M96.1 Postlaminectomy syndrome, not elsewhere classified (principal); M54.12 Radiculopathy, cervical region; R51 Headache; G89.29 Other chronic pain; M79.18 Myalgia, other site; I10 Essential (primary) hypertension; M32.9 Systemic lupus erythematosus, unspecified; Z88.0 Allergy status to penicillin

== ENCOUNTER → 2020-02-09 | Outpatient (CLI) | payer OTHER ==
[~2020-02-09] VITALS: Ht 154.9 cm; Wt 62.7 kg
[~2020-02-09] MED LIST changes: +CBD PO
[2020-02-09 09:20] VITALS: BP 128/83
--- NOTE | 2020-02-10 08:13 | HPC ---
[facility] [address] [place] [address] PAIN MANAGEMENT CONSULTATION Name: GISELLA FINN Room #: REG [facility]#: [id number] Admission: 02/09/20 Attend Phys: Lani Cannon Discharge: Date of : 62 Report #: [id number] THIS REPORT FOR: cc: BLU ZAPIEN not on staff Lani Cannon ~ CC: BLU Youngblood DO DATE OF SERVICE: 02/09/2020 CHIEF COMPLAINT: Cervical radiculopathy, myofascial pain. HISTORY OF PRESENT ILLNESS: This is a 59-year-old female who is well known to the pain clinic who returns today for refill and discussion of her medications. Today, she is reporting a pain score of 6-7 in her neck and shoulders. Occasionally, she does have ongoing low back pain. She does have lupus that affect her pain as well. She recently reports that she has been having a flare in her overall pain. She was also exposed to COVID recently and did test negative and has brought the report with her today, but she is wondering if that was a false report and she is experiencing increasing pain because of the coronavirus. The patient does report that her pain is worse with activity and weather changes. She is a week late for her appointment and did reduce some of her medications, though normally her pain is being controlled if she does utilize CBD oil in addition to her opioid medications for pain control. She denies any significant constipation or daytime somnolence as a result of her medications. ALLERGIES: PENICILLIN. CURRENT LIST OF MEDICATIONS: CBD spray, oxycodone 5/325 p.r.n., morphine sulfate 15 mg b.i.d., baclofen, amlodipine, Abilify, metoprolol, Imitrex, prednisone, potassium, Synthroid, HCTZ, Paxil, Requip, Lipitor, Protonix, Valium, Azmacort and ProAir. PQRS: 1. She has osteoarthritic changes in her back and knees as well as being treated for lupus. 2. Height is 5 feet 1 inch, weight is 138, BMI is 26. 3. Vital signs, blood pressure 128/83, pulse is 68, respirations 20, oxygen sat is 100, pain score is 6-7. 4. Fall risk. Denies dizziness, does not need help walking or standing, has not fallen in the last 3 months. 5. The patient is not on any blood thinners, [place] [address] PAIN MANAGEMENT CONSULTATION Name: GISELLA FINN Room #: REG [facility]#: [id number] Admission: 02/09/20 Attend Phys: Lani Cannon Discharge: Date of : 62 Report #: [id number] hypertension. 6. Opioid therapy is greater than 6 weeks; therefore, an opioid signed contract is on the chart. Risk assessment is low. Functional assessment is . 7. Recreational drug use, she denies. She does vape and does not drink alcohol. According to the prescription monitoring system, the patient is filling appropriately. Her morphine milliequivalent is 42 MMEs per day. There is a drug screen on the chart that was positive for THC. We did discuss this. Patient does takes CBD oil and states that she is not aware if it has any THC in it. Her son who lives with her as a green card for medical marijuana as does the patient and does inhale marijuana near her though she should not test positive for that. We will recheck her in 1 month. The patient will stop her CBD oil. PHYSICAL EXAMINATION: GENERAL: This is a well-developed, well-nourished, well-hydrated 59-year-old who appears her stated age, placing her current pain score at 6/10. HEENT: Normocephalic, atraumatic. Extraocular eye muscles are intact. She is wearing a mask. She does have a frontal headache today with bright light disturbing her vision. EXTREMITIES: No clubbing, no cyanosis, no edema. MUSCULOSKELETAL: She has restrictions in her cervical spine due to previous surgeries. Cervical provocation testing is met with increasing pain. Tenderness in the paraspinal musculature of the lumbar spine. Lower extremity strength is diminished at 4/5. ASSESSMENT: 1. Chronic cervical radiculopathy. 2. Post-laminectomy syndrome. 3. Chronic headaches. 4. Cervicogenic headaches. 5. Myofascial pain. 6. Systemic lupus erythematosus. 7. Complex medical management utilizing scheduled medications. We reviewed the fact that opiate medications are being used to provide analgesia adequate to support activities of daily living, not attempting to achieve a specific pain score on the 0-10 Visual Analog Scale. The current opiate medications are providing sufficient analgesia to allow the patient to participate in activities of daily living. The patient is not exhibiting any aberrant behavior suggestive of drug diversion. The patient is not having any adverse reactions to medications. The patient is not suffering from daytime somnolence or mental acuity changes. The patient is managing opiate-induced constipation with appropriate ijzc-vyv-xwxpqqk agents and dietary considerations. The patient was counseled on concern for caution with operating [facility] [address] [place] [address] PAIN MANAGEMENT CONSULTATION Name: GISELLA FINN [facility] [id number] Admission: 02/09/20 Attend Phys: Lani Cannon Discharge: Date of : 62 Report #: [id number] a motor vehicle while using opiate medications. PLAN: 1. We discussed treatment options with the patient today. We reviewed her previous urine drug screen that was positive for nicotine as well as marijuana as well as all of her opioid medications. The patient admits to using CBD oil and is unaware if that there is THC in this mixture. She does get it from a local smoke shack store. The patient will stop utilizing this medication for the next month and we will recheck her. Her son does utilize inhaled marijuana through his medical marijuana card near her. According to reports she should not be testing positive for secondhand marijuana smoke, but we will recheck her in 1 month. The patient does have a medical marijuana card. 2. We will refill her morphine sulfate 15 mg b.i.d. This was decreased at her last visit and finds that she is doing fine with this decrease, but was wondering if she may increase her breakthrough pain medicine one tablet to 90 tablets in a month as opposed to 75. This will bring her morphine milliequivalent to 52 MME. We will attempt this for 1 month and see if she notices any changes. If not, we will return her back to 2-3 tablets a day, quantity 75. Scripts will be sent for [address] Emile Youngblood. 3. We did discuss her ongoing migraine headaches. She does take Imitrex and had discussed in the past with our physicians regarding Botox. She would like to consider this again. We will give her the name of Dr. Araujo that she may schedule an appointment as needed. 4. Appointment made for 1 month. The patient is seen today in collaboration with Dr. Emile Youngblood. <ELECTRONICALLY SIGNED> By: Lani Cannon 02/10/20 0813 [id number] Lani Cannon /nt
== END ==
LOC: PAIN 02-02 06:56
PROVIDERS: ATTEND Clinical Nurse Specialist Adult Health
DX: M54.12 Radiculopathy, cervical region (principal); M79.10 Myalgia, unspecified site; M96.1 Postlaminectomy syndrome, not elsewhere classified; R51.9 Headache, unspecified; J43.9 Emphysema, unspecified; F11.20 Opioid dependence, uncomplicated; Z88.8 Allergy status to other drugs, medicaments and biological substances; Z79.899 Other long term (current) drug therapy

== ENCOUNTER → 2020-03-15 | Outpatient (CLI) | payer OTHER ==
[~2020-03-15] VITALS: Ht 154.9 cm; Wt 62.1 kg
[2020-03-15 10:19] VITALS: BP 139/72
--- NOTE | 2020-03-15 10:25 | NUR ---
Pain Clinic Assessment: 1. History of Osteoarthritis: BACK KNEES History of Rheumatoid Arthritis: LUPUS 2. Height: 5 ft. 1 in. 154.9 cm. Weight: 137.0 lb. oz. 62.143 kg. Patient's BMI: 25.9 3. Vital Signs: BP: 139/72 Pulse: 67 Resp: 14 Temp: 02 Sat: 99 ECG Mon: 4. Pain Intensity: 6 5. Fall Risk: Dizziness: N Needs help standing or walking: N Fallen in the last 3 months: N Fall risk comments: 6. Patient on Blood Thinner: None 7. History of Hypertension: Y 8. Opioid Therapy greater than 6 weeks: Y Opiate Contract Signed: 05/23/17 9. Risk Assessment Tool Provided: 1/flex 10. Functional Assessment Tool: 11. Recreational Drug Use: Never Drug Type: Tobacco Use: Current Every Day Smoker Tobacco Type: E-Cigarettes Amount or Packs/day: How Many Years: Alcohol Use: No Frequency: Quant:
--- NOTE | 2020-03-16 07:49 | HPC ---
[facility] [address] [place] [address] PAIN MANAGEMENT CONSULTATION Name: GISELLA FINN Room #: REG [facility].#: [id number] Admission: 03/15/20 Attend Phys: Lani Cannon Discharge: Date of : 62 Report #: [id number] THIS REPORT FOR: cc: BLU ZAPIEN Physician not on staff Lani Cannon ~ DATE OF SERVICE: 03/15/2020 CHIEF COMPLAINT: Cervical radiculopathy, myofascial pain. HISTORY OF PRESENT ILLNESS: This is a 59-year-old female who returns to the pain clinic for renewal of her medications and a repeat urine drug screen. Today, the patient is reporting a pain score of 6/10. The majority of her pain is in her neck and shoulder region, though she does have some continued ongoing low back pain that does radiate into her legs. Her pain is worse with activity and using her arms. She believes that the medications as well as lying down and utilizing a hot shower has been beneficial. The patient reports today that she did see Dr. Chung for Botox. They are in the authorization stage for her to undergo Botox treatments for her migraines as well as her shoulder dystonia that she is experiencing. She is hopeful by starting this process. She may be able to wean off her long-acting medication of morphine. The patient also reports today she has not had any CBD oil in greater than a month since our last visit. ALLERGIES: PENICILLIN. CURRENT LIST OF MEDICATIONS: Oxycodone 5/325, morphine sulfate 15 mg b.i.d., baclofen p.r.n., Abilify, Lopressor, Imitrex p.r.n., prednisone, potassium, levothyroxine, Paxil, ropinirole, atorvastatin, Protonix, Valium p.r.n. and albuterol inhalers. PQRS: 1. She has a history of osteoarthritis in her back and knees and suffers from lupus. 2. Height is 5 feet 1 inch, weight is 137, BMI is 25. 3. Vital signs 139/72, pulse is 67, respirations 14, oxygen sat is 99%. 4. Pain score 6/10. 5. Denies dizziness, does not need help walking, has not fallen in the last 3 months. 6. The patient is not on any blood thinners, but does take medicine for hypertension. 7. Opioid therapy is greater than 6 weeks; therefore, an opioid signed contract is on the chart. Risk assessment is low. Functional assessment is . 8. Recreational drug use, she denies. She is a current smoker of e-cigarettes and does not drink alcohol. Per her report, she has not had any CBD oil in [address] [address] PAIN MANAGEMENT CONSULTATION Name: GISELLA FINN Room #: REG CL Stefanie#: [id number] Admission: 03/15/20 Attend Phys: Lani Cannon Discharge: Date of : 62 Report #: [id number] greater than 30 days. According to the prescription monitoring system, the patient is due to fill her medications today, filling in a timely fashion. She does take a benzodiazepine or Valium on a very sparingly basis and fills that medication in every 6 months. PHYSICAL EXAMINATION: GENERAL: This is a well-developed, well-nourished, well-hydrated 59-year-old who is appearing her stated age, placing her current pain score today at 6/10. HEENT: Normocephalic, atraumatic. Extraocular eye muscles are intact. She is wearing a mask. Has a headache in the frontal part of her forehead causing eye photosensitivity due to the bright lights. EXTREMITIES: No clubbing, no cyanosis. MUSCULOSKELETAL: She has restriction in her cervical spine due to previous surgeries with a well-healed approximated scar. Cervical provocation test is met with increasing pain. She has tenderness in her trapezius muscles bilaterally as well as tenderness in her lumbosacral region. ASSESSMENT: 1. Chronic cervical radiculopathy. 2. Chronic headache. 3. Cervicogenic headaches. 4. Myofascial pain. 5. Post-laminectomy syndrome. 6. Systemic lupus erythematosus. 7. Complex medical management utilizing scheduled medications. We reviewed the fact that opiate medications are being used to provide analgesia adequate to support activities of daily living, not attempting to achieve a specific pain score on the 0-10 Visual Analog Scale. The current opiate medications are providing sufficient analgesia to allow the patient to participate in activities of daily living. The patient is not exhibiting any aberrant behavior suggestive of drug diversion. The patient is not having any adverse reactions to medications. The patient is not suffering from daytime somnolence or mental acuity changes. The patient is managing opiate-induced constipation with appropriate ueav-onc-mhkqyzs agents and dietary considerations. The patient was counseled on concern for caution with operating a motor vehicle while using opiate medications. A physical exam was performed and the patient's functional status was evaluated. All patients with back pain were advised against the bed rest greater than 4 days and were advised to return to normal activities. Pain score assessment was noted and the treatment plan was reviewed with the patient. All current medications, both prescribed and OTC were reviewed and reconciled on the electronic medical record. Tobacco screening was accomplished and smoking cessation was advised when indicated. BMI was noted and diet/exercise [address] [place] [address] PAIN MANAGEMENT CONSULTATION Name: GISELLA FINN [facility] [id number] Admission: 03/15/20 Attend Phys: Lani NATALIE Cannon Discharge: Date of : 62 Report #: [id number] modification was recommended for all patients following outside normal parameters. I reviewed with the patient today their responsibilities to safeguard prescription medications, reviewed their responsibility to utilize medications only as prescribed by the physician. They are to seek and receive pain medications only from 1 physician group ( [facility]). They are to use 1 pharmacy and keep the clinic informed if they change pharmacies. Their responsibilities include making followup visits in a timely fashion and to avoid abrupt discontinuation of medication usage. Their responsibilities further include bringing their medications (bottles from the pharmacy with residual pills) to the visit for possible confirmation of pill counts and the patient understands it is their responsibility to submit to random drug screens to ensure both that the medications prescribed are present, and that no other controlled substances are present. All prescriptions provided today were generated electronically. PLAN: 1. We discussed treatment options with the patient today. The patient reports no CBD or THC products in the past month. She had not been taking any THC, but her son had been utilizing that in her presence, which she has not allowed in the past 30 days. She also reports she is moving to [place], so that will not be a factor in her household. She has a medical marijuana green card, though is not utilizing the benefit currently. We will check a random drug screen on this patient today. 2.The patient is excited to hopefully be approved to have Botox injections for her ongoing cervicogenic and migraine headaches. She is hopeful once to have this process started, she will be able to wean off her morphine. We did discuss how we would slowly titrate her down, dropping one MS 15 mg tablet every month and continue her on her breakthrough pain medicine. 3. Scripts sent for 1 month to the pharmacy by Dr. Emile Youngblood. We will obtain the results and determine the plan of care. Once her results of UDS are returned; if negative, we will electronically send one additional month of medications. I have taken the liberty of sending refills of her Imitrex as well for her migraine headaches. 4. The patient is seen today in collaboration with Dr. Emile Youngblood. <ELECTRONICALLY SIGNED> By: Lani Cannon 03/16/20 0749 [id number] Lani Cannon /nt
== END ==
LOC: PAIN 03-09 06:54
PROVIDERS: ATTEND Clinical Nurse Specialist Adult Health
DX: M54.12 Radiculopathy, cervical region (principal); G89.29 Other chronic pain; M96.1 Postlaminectomy syndrome, not elsewhere classified; L93.0 Discoid lupus erythematosus; Z79.891 Long term (current) use of opiate analgesic

== ENCOUNTER → 2020-05-18 | Outpatient (CLI) | payer OTHER ==
[~2020-05-18] VITALS: Ht 154.9 cm; Wt 63.7 kg
[~2020-05-18] MED LIST changes: +VOLTAREN GEL 1100 G1 TOP
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
[2020-05-18 12:54] VITALS: BP 146/83
--- NOTE | 2020-05-18 13:04 | NUR ---
Pain Clinic Assessment: 1. History of Osteoarthritis: BACK KNEES History of Rheumatoid Arthritis: LUPUS 2. Height: 5 ft. 1 in. 154.9 cm. Weight: 140.4 lb. oz. 63.685 kg. Patient's BMI: 26.5 3. Vital Signs: BP: 146/83 Pulse: 80 Resp: 16 Temp: 02 Sat: 100 ECG Mon: 4. Pain Intensity: 7 5. Fall Risk: Dizziness: N Needs help standing or walking: Y Fallen in the last 3 months: N Fall risk comments: 6. Patient on Blood Thinner: None 7. History of Hypertension: Y 8. Opioid Therapy greater than 6 weeks: Y Opiate Contract Signed: 05/23/17 9. Risk Assessment Tool Provided: 1/flex 10. Functional Assessment Tool: 11. Recreational Drug Use: Never Drug Type: Tobacco Use: Current Every Day Smoker Tobacco Type: E-Cigarettes Amount or Packs/day: How Many Years: 15 Alcohol Use: No Frequency: Quant:
== END ==
LOC: PAIN 05-03 07:03
PROVIDERS: ATTEND Anesthesiology Pain Medicine
DX: M54.12 Radiculopathy, cervical region (principal); M79.10 Myalgia, unspecified site; G89.29 Other chronic pain; M96.1 Postlaminectomy syndrome, not elsewhere classified; M32.9 Systemic lupus erythematosus, unspecified; M48.56XD Collapsed vertebra, not elsewhere classified, lumbar region, subsequent encounter for fracture with routine healing; F11.20 Opioid dependence, uncomplicated; Z88.8 Allergy status to other drugs, medicaments and biological substances; Z79.899 Other long term (current) drug therapy

== ENCOUNTER → 2020-08-16 | Outpatient (CLI) | payer OTHER ==
[~2020-08-16] VITALS: Ht 162.6 cm; Wt 61.2 kg
[2020-08-16 12:31] VITALS: BP 158/80
--- NOTE | 2020-08-16 12:38 | NUR ---
Pain Clinic Assessment: 1. History of Osteoarthritis: BACK KNEES History of Rheumatoid Arthritis: LUPUS 2. Height: 5 ft. 4 in. 162.6 cm. Weight: 135.0 lb. oz. 61.236 kg. Patient's BMI: 23.2 3. Vital Signs: BP: 158/80 Pulse: 80 Resp: 16 Temp: 02 Sat: 96 ECG Mon: 4. Pain Intensity: 2 5. Fall Risk: Dizziness: N Needs help standing or walking: N Fallen in the last 3 months: N Fall risk comments: 6. Patient on Blood Thinner: None 7. History of Hypertension: Y 8. Opioid Therapy greater than 6 weeks: Y Opiate Contract Signed: 05/23/17 9. Risk Assessment Tool Provided: 1/low 10. Functional Assessment Tool: 11. Recreational Drug Use: Never Drug Type: Tobacco Use: Current Every Day Smoker Tobacco Type: E-Cigarettes Amount or Packs/day: How Many Years: Alcohol Use: No Frequency: Quant:
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
== END ==
LOC: PAIN 09:16
PROVIDERS: ATTEND Clinical Nurse Specialist Adult Health
DX: M54.12 Radiculopathy, cervical region (principal); R51.9 Headache, unspecified; G89.29 Other chronic pain; M79.10 Myalgia, unspecified site; M96.1 Postlaminectomy syndrome, not elsewhere classified; M32.9 Systemic lupus erythematosus, unspecified; Z79.891 Long term (current) use of opiate analgesic; Z79.899 Other long term (current) drug therapy

== ENCOUNTER → 2020-10-26 | Outpatient (CLI) | payer OTHER ==
[~2020-10-26] VITALS: Ht 162.6 cm; Wt 62.1 kg
[~2020-10-26] MED LIST changes: +CBD OIL PO
--- NOTE | ~2020-10-26 | HPC ---
[facility] [place] [address] PAIN MANAGEMENT CONSULTATION Name: GISELLA FINN [id number] Admission: 10/26/20 Attend Phys: Lani Cannon Discharge: Date of : 62 Report #: [id number] THIS REPORT FOR: cc: BLU ZAPIEN Physician not on staff Lani Cannon ~ cc: Emile Myers DO DATE OF SERVICE: 10/26/2020 CHIEF COMPLAINT: Cervical radiculopathy, cervicogenic headaches and myofascial pain. HISTORY OF PRESENT ILLNESS: This is a 60-year-old female who returns to the pain clinic today for renewal of her medications that she takes for her ongoing neck and head pain. Today, she is reporting a pain score of 4/10 with slightly lower than her pain is typically. She reports that current medications are helping quite well. Unfortunately, she has not been able to have Botox injections that we had discussed earlier this year. Her son is living in [place] and has recently had neck surgery. She has been between the 2 locations helping care for him. She does report that lately her cervicogenic headaches have been slightly better and is unsure if she will continue to go that route. She has not been using her Imitrex and has been only utilizing her muscle relaxants 1-2 tablets every day. She states that her pain is an achy sensation that is worse with stress and using her arms or busy with activity. She believes as long as she lies down, uses heat and her medications, her pain has been well controlled the past few months. The patient denies any constipation issues. 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 We were collecting a urine drug screen on her today and she reports there should be no THC in there based on this new CBD medication she is using. The patient is also telling me that she has been having problems staying asleep and wonder if we have any options for her. ALLERGIES: PENICILLIN. CURRENT LIST OF MEDICATIONS: CBD oil, oxycodone, morphine sulfate 15 mg b.i.d., baclofen p.r.n., Imitrex p.r.n., Voltaren gel, meloxicam, amitriptyline, Abilify, Lopressor, prednisone, potassium, levothyroxine, hydrochlorothiazide, Paxil, Requip, Lipitor, Protonix, Valium, Azmacort and ProAir. PQRS: 1. She has arthritic changes in her back and knees and also is diagnosed with lupus and treated for. 2. Height is 5 feet 4 inches. Weight is 137. BMI [place] 22[place] [address] PAIN MANAGEMENT CONSULTATION Name: GISELLA FINN Room #: REG B[facility] Watts#: [id number] Admission: 10/26/20 Attend Phys: Lani Cannon Discharge: Date of : 62 Report #: [id number] 3. Vital signs; blood pressure 139/85, pulse is 62, respirations 16, oxygen sat is 99%. 4. Pain score is 4/10. 5. Denies dizziness, does not need help walking or standing, has not fallen in the last 3 months. 6. The patient is not on any blood thinners, but does take medicine for hypertension. 7. Opioid therapy is greater than 6 weeks; therefore, an opioid signed contract is on the chart. Risk assessment is low. Functional assessment is 41/70. 8. Recreational drug use. She does use E-cigarettes and does not drink alcohol. According to the prescription monitoring system, the patient is filling appropriately in a timely fashion. Her morphine milliequivalent is 52 MMEs. We will collect a random drug screen on her today. PHYSICAL EXAMINATION: GENERAL: This is a well-developed, well-nourished, well-hydrated 60-year-old female who appears older than her stated age, placing her current pain score at 4/10 today. HEENT: Normocephalic, atraumatic. Extraocular eye muscles are intact. Mucous membranes are moist. She is wearing a mask. EXTREMITIES: No clubbing, no cyanosis, no edema. MUSCULOSKELETAL: Cervical provocation testing is met with increasing pain with all planes. She has well-healed cervical scar. Tenderness over her splenius capitis and trapezius muscles in her upper back region. No thoracic tenderness today. ASSESSMENT: 1. Chronic cervical radiculopathy. 2. Chronic headaches. 3. Cervicogenic headaches. 4. Myofascial pain. 5. Systemic lupus erythematosus. 6. Post-laminectomy syndrome. 7. Complex medical management utilizing scheduled opioid medications. PLAN: 1. We discussed treatment options with the patient today. The patient states her current regimen has been beneficial in decreasing her pain as well as her adjunct medications. Today, we will have Dr. Emile Youngblood send these medications electronically for MS Contin 15 mg b.i.d. as well as oxycodone 5/325, #75 for today and 4-week release. 2. We did discuss possible issues with supply chain and medication instructing the patient to make sure she has her full dosage before she leaves the pharmacy. If she is unable to obtain the full amount to contact another pharmacy before [facility] [address] [place] [address] PAIN MANAGEMENT CONSULTATION Name: GISELLA FINN Room #: REG [facility] Jose Alberto.#: [id number] Admission: 10/26/20 Attend Phys: Lani Cannon Discharge: Date of : 62 Report #: [id number] we would send that electronically to that pharmacy which we will do one time. 3. The patient will continue her CBD oil reminding her that should not have any THC in it. We did collect a random drug screen on her today. 4. We talked about her sleeping issues. She is able to fall asleep, but not stay asleep longer than 2-3 hours. We discussed sleep aid such as melatonin or triptan that are both [id number] to see if this is beneficial. Time spent with the patient in consultation, reviewing recent clinical notes and physician reports, physical examination and correlation of physical findings and medical documentation to determine possible treatment options 17 minutes. Time spent preparation for appointment reviewing prescription monitoring system reports, reviewing previous records and proposed treatment options and current medications 5 minutes. Time spent preparing and sending electronic prescriptions with collaborating physician, Dr. Emile Youngblood, documentation of visit and plan of treatment 5 minutes. Total time spent 27 minutes. By: 7 23 Lani Cannon /nt
[2020-10-26 08:36] VITALS: BP 19/85
--- NOTE | 2020-10-26 08:39 | NUR ---
Pain Clinic Assessment: 1. History of Osteoarthritis: BACK KNEES History of Rheumatoid Arthritis: LUPUS 2. Height: 5 ft. 4 in. 162.6 cm. Weight: 137.0 lb. oz. 62.143 kg. Patient's BMI: 23.5 3. Vital Signs: BP: 19/85 Pulse: 62 Resp: 16 Temp: 02 Sat: 99 ECG Mon: 4. Pain Intensity: 4 5. Fall Risk: Dizziness: N Needs help standing or walking: N Fallen in the last 3 months: N Fall risk comments: 6. Patient on Blood Thinner: None 7. History of Hypertension: Y 8. Opioid Therapy greater than 6 weeks: Y Opiate Contract Signed: 05/23/17 9. Risk Assessment Tool Provided: 1/low 10. Functional Assessment Tool: 11. Recreational Drug Use: Never Drug Type: Tobacco Use: Current Every Day Smoker Tobacco Type: E-Cigarettes Amount or Packs/day: <1CARTRIDGE How Many Years: Alcohol Use: No Frequency: Quant:
== END ==
LOC: PAIN 06:49
PROVIDERS: ATTEND Clinical Nurse Specialist Adult Health
DX: M54.12 Radiculopathy, cervical region (principal); R51.9 Headache, unspecified; M32.9 Systemic lupus erythematosus, unspecified; Z79.891 Long term (current) use of opiate analgesic; Z79.899 Other long term (current) drug therapy

== ENCOUNTER → 2020-12-21 | Outpatient (CLI) | payer OTHER ==
[~2020-12-21] VITALS: Ht 162.6 cm; Wt 61.2 kg
[~2020-12-21] MED LIST changes: +PERCOCET 5-3251 EACH PO
[2020-12-21 10:15] VITALS: BP 156/78
--- NOTE | 2020-12-21 10:44 | NUR ---
Pain Clinic Assessment: 1. History of Osteoarthritis: BACK KNEES History of Rheumatoid Arthritis: LUPUS 2. Height: 5 ft. 4 in. 162.6 cm. Weight: 135.0 lb. oz. 61.236 kg. Patient's BMI: 23.2 3. Vital Signs: BP: 156/78 Pulse: 66 Resp: 14 Temp: 02 Sat: 96 ECG Mon: 4. Pain Intensity: 3 5. Fall Risk: Dizziness: N Needs help standing or walking: N Fallen in the last 3 months: N Fall risk comments: 6. Patient on Blood Thinner: None 7. History of Hypertension: Y 8. Opioid Therapy greater than 6 weeks: Y Opiate Contract Signed: 05/23/17 9. Risk Assessment Tool Provided: 1/low 10. Functional Assessment Tool: 11. Recreational Drug Use: Never Drug Type: Tobacco Use: Current Every Day Smoker Tobacco Type: E-Cigarettes Amount or Packs/day: How Many Years: Alcohol Use: No Frequency: Quant:
== END ==
LOC: PAIN 07:08
PROVIDERS: ATTEND Clinical Nurse Specialist Adult Health
DX: G89.29 Other chronic pain (principal); M54.12 Radiculopathy, cervical region; R51.9 Headache, unspecified; M96.1 Postlaminectomy syndrome, not elsewhere classified; M32.9 Systemic lupus erythematosus, unspecified; Z88.8 Allergy status to other drugs, medicaments and biological substances; Z79.899 Other long term (current) drug therapy

== ENCOUNTER → 2021-03-28 | Outpatient (CLI) | payer OTHER ==
[~2021-03-28] VITALS: Ht 162.6 cm; Wt 61.2 kg
[2021-03-28 10:14] VITALS: BP 127/70
--- NOTE | 2021-03-28 10:17 | NUR ---
Pain Clinic Assessment: 1. History of Osteoarthritis: BACK KNEES History of Rheumatoid Arthritis: LUPUS 2. Height: 5 ft. 4 in. 162.6 cm. Weight: 135.0 lb. oz. 61.236 kg. Patient's BMI: 23.2 3. Vital Signs: BP: 127/70 Pulse: 79 Resp: 18 Temp: 02 Sat: 95 ECG Mon: 4. Pain Intensity: 5 5. Fall Risk: Dizziness: N Needs help standing or walking: N Fallen in the last 3 months: Y Fall risk comments: 6. Patient on Blood Thinner: None 7. History of Hypertension: Y 8. Opioid Therapy greater than 6 weeks: Y Opiate Contract Signed: 05/23/17 9. Risk Assessment Tool Provided: 1/low 10. Functional Assessment Tool: 11. Recreational Drug Use: Never Drug Type: Tobacco Use: Current Every Day Smoker Tobacco Type: E-Cigarettes Amount or Packs/day: How Many Years: Alcohol Use: No Frequency: Quant:
== END ==
LOC: PAIN 09:49
PROVIDERS: ATTEND Clinical Nurse Specialist Adult Health
DX: M54.16 Radiculopathy, lumbar region (principal); R51.9 Headache, unspecified; M32.8 Other forms of systemic lupus erythematosus; M96.1 Postlaminectomy syndrome, not elsewhere classified; G89.29 Other chronic pain; F17.200 Nicotine dependence, unspecified, uncomplicated; Z88.0 Allergy status to penicillin; Z79.899 Other long term (current) drug therapy